=== PATIENT | female | born 1985 | race Caucasian/White ===

== ENCOUNTER 2016-08-10 12:59 | Inpatient (IN) | payer MEDICAID ==
--- NOTE | 2016-08-10 14:44 | US ---
Biophysical profile: Multiple real-time images were obtained transabdominally. Dates: LMP: ? Current ultrasound: [facility] 08/24/16, gestational age 38 weeks 0 days Earliest ultrasound (02/25/16): [facility] 08/20/16, gestational age 38 weeks 4 days presentation: Cephalic Placenta: Anterior Amniotic fluid: NICOLE 7.86 cm Measurements: BPD: 9.39 cm - 38 weeks 2 days Head circumference: 33.20 cm - 37 weeks 6 days Abdominal circumference: 33.82 cm - 37 weeks 5 days Femur length: 7.45 cm - 38 weeks 1 day Estimated weight: 3338 g (7 lbs. 6 oz.), estimated weight at the 57th percentile Heart rate: 127 bpm Cervical length: 4.3 cm Growth curves: Various growth parameters show growth around the mean percentile. Growth is appropriate from prior studies. Biophysical profile: movement 0, breathing movement 2, tone 0, amniotic fluid volume 2 Impression: 1. Single intrauterine fetus currently cephalic in presentation. Dates as noted above. 2. 4 out of 8 on biophysical profile. Diagnostic code #5 Technologist gave a preliminary report given to LELAND Tysno for Dr. Garrison Hurtado at 13:55 PM on day of exam
[2016-08-10] MEDS ORDERED: fentaNYL 100 MCG/2 ML SDV EPIDUR PRN (16:59)
[2016-08-10] MEDS ORDERED: ePHEDrine 50 MG/ML SDV IVPUSH PRN (16:59)
[2016-08-10] MEDS ORDERED: Ondansetron 4 MG/2 ML SDV IVPUSH PRN (16:59)
--- NOTE | 2016-08-10 17:05 | PCM.PREANE ---
Preanesthetic Assessment - Anesthesia/Transfusion/Family Hx Anesthesia History: Prior Anesthesia Without Reaction (No general anesthesia noted.) Family History of Anesthesia Reaction: No Transfusion History: No Prior Transfusion(s) Intubation History: Unknown - Review of Systems General: No Symptoms (Patient does c/o a sore throat in which she says she is a mouth breather.) Pulmonary: No Symptoms (Asthma- last used albuterol inhaler 3 months ago./ CARSON noted with patient having a CPAP machine, however pt. states she does not use the CPAP machine.) Cardiovascular: No Symptoms (chest tightness noted with anxiety attacks), Palpitations (with anxiety attacks.), Edema (noted with ), Lightheadedness (Only when blood sugars get low.) Gastrointestinal: No symptoms (GERD ) Neurological: No Symptoms Other: Reports: Diabetes (gestational DM noted with patient being treated with glyburide at night.), Throat Pain, Anxiety - Physical Assessment NPO Status Date: 08/10/16 NPO Status Time: 11:00 Pulse: 85 O2 Sat by Pulse Oximetry: 99 Respiratory Rate: 20 Blood Pressure: 144/78 Temperature: 37.4 C Height: 1.73 m Weight: 156.943 kg ASA Class: 2 Mental Status: Alert & Oriented x3 Airway Class: Mallampati = 2 Dentition: Reports: Normal Dentition, Caries Thyro-Mental Finger Breadths: 3 Mouth Opening Finger Breadths: 3 ROM/Head Extension: Full Lungs: Clear to auscultation, Normal respiratory effort Cardiovascular: Regular Rate, Regular Rhythm - Allergies Allergies/Adverse Reactions: Allergies Allergy/AdvReac Type Severity Reaction Status Date / Time No Known Allergies Allergy Verified 07/31/16 09:54 - Anesthesia Plan Pre-Op Medication Ordered: None - Acknowledgements Anesthesia Type Planned: Epidural Pt an Appropriate Candidate for the Planned Anesthesia: Yes Alternatives and Risks of Anesthesia Discussed w Pt/Guardian: Yes Pt/Guardian Understands and Agrees with Anesthesia Plan: Yes PreAnesthesia Questionnaire - HOME MEDS Home Medications: Home Meds Loperamide HCl [Ultra A-D] 2 mg PO 6XDAY PRN #1 tablet 07/31/16 [Rx] Vit W-Ca,Fe,FA(<1 mg) [ Vitamins] 1 each PO DAILY 07/31/16 [ History] glyBURIDE [Glyburide] 0.5 tab PO BEDTIME 07/31/16 [History] oxyCODONE HCl/Acetaminophen [Percocet 5-325 mg Tablet] 2 each PO QID PRN #20 tablet 07/31/16 [Rx] - CURRENT (IN HOUSE) MEDS Current Meds: Current Medications Ephedrine Sulfate (Ephedrine Sulfate) 5 mg IVPUSH ASDIRECTED PRN PRN Reason: Hypotension Fentanyl (Sublimaze) 100 mcg EPIDUR Q3H PRN PRN Reason: Pain Fentanyl/Bupivacaine HCl (Fentanyl/Bupivacaine/Ns 2 Mcg-0.125% 100 Ml) 100 ml EPIDUR ASDIRECTED KAUR Ondansetron HCl (Zofran) 4 mg IVPUSH ONETIME PRN PRN Reason: Nausea/Vomiting
[2016-08-10] MEDS ORDERED: Sodium Chloride 0.9% 10 ML Syringe FLUSH PRN (17:07)
[2016-08-10] MEDS ORDERED: Nalbuphine 20 MG/1 ML Amp IVPUSH PRN (17:07)
[2016-08-10] MEDS: Oxytocin/Lactated Ringers 10 UNIT/1,000 ML BAG IV SCH (17:50)
[2016-08-10] MEDS: Lactated Ringers 1,000 ML IV SCH (17:50)
--- NOTE | 2016-08-10 21:05 | PCM.LDHP ---
L&D History of Present Illness - General Date of Service: 08/10/16 Admit Problem/Dx: Patient Status Order with Admit Dx/Problem 08/10/16 17:07 Patient Status [ADT] Routine Admission Diagnosis/Problem Admission Diagnosis/Problem Normal labor 08/10/16 20:47 38-1/7 week intrauterine , nonreassuring biophysical profile and heart rate tracing. Source of Information: Patient History Limitations: Reports: No limitations - History of Present Illness Introduction:: Kriss is a 30-year-old 3 para 04/25/2002 white female who is admitted to labor and delivery for a medically indicated induction of labor. She is presently at 38-1/7 weeks gestational age as based upon her earliest ultrasound done on 01/12/2016 at 8-0/7 weeks gestational age with his her in [facility] of 2016. Patient was seen earlier today in clinic for a routine visit. She has a history of gestational diabetes, is on glyburide and has been having weekly biophysical profiles. Her biophysical profile score today was 4/8 with 0 for movement and 0 for amniotic fluid volume. A nonstress test was done in the clinic following the biophysical profile and showed a reactive strip however during the course of the monitoring she had a three-minute bradycardia to 60 beats per minute. This recovered however and patient was sent to labor and delivery for extended monitoring. With this patient is known to have some contractions approximately every 5 minutes which are causing her some cramping. heart tones are generally good. The decision is made to induce her today because of the testing, her street of gestational diabetes. The procedure of Pitocin induction, its risks, benefits and alternatives are discussed in detail with the patient. She is in agreement with the plan. 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 LMP is definite and started on 2015. Her cycles come monthly and patient was using no control at time conception. Menarche age 12. Positive hCG was on 12/22/2015. Patient has deliveries include a L. born [birth year]09/2006 at 37 weeks gestational age. He weighed 7 lbs. 7 oz. and was born in [facility]. She suffered from preeclampsia during that and delivered early because of this. Baby's name is Clyde. Second baby was born on 06/09/2011. Male infant born at 36 weeks gestational age after 32 hours of labor. 6 lbs. 6 oz. Normal spontaneous vaginal delivery in [facility]. Child's name is Son. Patient had gestational diabetes during that . Patient's course was significant for an abnormal quad screen with an increased alpha-fetoprotein. Patient was evaluated by maternal medicine in May 2016 and no spine defects were noted. She is group B strep negative. She declined influenza vaccination. She has gestational diabetes and is very well controlled with glyburide and diet modification. She is morbidly obese. Patient had RhoGAM on 06/01/2016. Weekly biophysical profiles have been reassuring until today. Patient's first visit was on 01/12/2016 at 8-5/ 7 weeks gestational age. She was seen on a very regular basis. She made good fundal height growth bolus was very hard to evaluate. Weight increased from 322 pounds to 346 pounds. Her blood pressure remained stable throughout the course. Laboratory testing and shows blood to the A-. Antibody screen is negative. Platelets at first visit were 295,000. Pap smear was normal. Rubella titer showed immunity. RPR is nonreactive. Hepatitis B and HIV assays were negative. Gonorrhea and 6 Chlamydia assays were negative. Second trimester testing showed a hemoglobin of 10.4 which time patient was started on iron therapy. Platelets were 275. One-hour GTT was 137. Three-hour GTT showed fasting blood sugar of 97. One hour GTT was 213, 2 are both blood glucose was 172, three-hour glucose was 78. Group B strep screen was negative. RhoGAM was given on 05/31/2016 following a negative antibody screen. Allergies: none Medications: 1. Glyburide 2.5 mg daily 2. Sertraline 50 mg by mouth daily 3. Xanax 0.5 mg taken on occasion early in the . 4. ProAir inhalation aerosol solution 1-2 puffs every 4-6 hours when necessary for asthma 5. vitamins Past medical history: 1. history of preeclampsia first 2. History of gestational diabetes and second 3 History of depression and anxiety. Past surgical history: 1. Left arm surgery in 1992 2. 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 Maternal and paternal grandmothers with lung cancer. No anesthesia, bleeding or blood clotting problems noted in the family. Social history: Patient is single. She works at [employer]. She lives in [facility]. She does use a significant loss of alcohol drugs tobacco. Review of systems: Skin-negative Cardiovascular-negative Respiratory-unremarkable Breasts-changes associated with Abdomen/GI-no concerns gas changes associated with Musculoskeletal-unremarkable Neurological-negative Physical exam: Pre-gravid weight 322 pounds, weight today 346 pounds, blood pressure today 130/78, heart rate 130 beats per minute In general this is a well-developed well-nourished massively obese white female in no acute distress. She is alert and oriented x3 and appears his stated age. Skin is warm and dry without lesions. Patient does have some well healed lesions consistent with old and healed carbuncle was on her abdomen. No active lesions noted HEENT, neck and back within normal limits Lungs are clear with good breath sounds in all lung morin. Cardiovascular exam shows regular rate and rhythm. Breasts exam deferred having been done at first visit on HEENT normal. Abdomen is obese, soft, nontender the uterus is at 40 cm fundal height consistent with dates Cervical evaluation done upon admission shows cervix to be a tight 3 cm, 80% effaced, very soft, -4 station, mid position, vertex presentation, bag of thomas intact. Extremities and neurological exam mild edema within normal limits. 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 History: Reports: Psychiatric History: Reports: Anxiety, Depression Endocrine/Metabolic History: Reports: Diabetes, gestational - Past Surgical History Respiratory Surgical History: Reports: None Other Musculoskeletal Surgeries/Procedures:: left hand surgery Social & Family History - Family History Family Medical History: Noncontributory - Tobacco Use Smoking Status *Q: Never Smoker Second Hand Smoke Exposure: No - Recreational Drug Use Recreational Drug Use: No H&P Review of Systems - Review of Systems: Review Of Systems: See Below L&D Exam - Exam Exam: See Below - Vital Signs Vital Signs: Last Vital Signs Temp 37.4 C 08/10/16 17:31 Pulse 85 08/10/16 17:31 Resp 20 08/10/16 17:31 BP 144/78 H 08/10/16 17:31 Pulse Ox 99 08/10/16 17:31 Weight: 156.943 kg - Patient Data Lab Results last 24 hrs: Laboratory Results - last 24 hr 08/10/16 Range/Units 17:35 WBC 12.26 H (3.98-10.04) K/mm3 RBC 3.98 (3.98-5.22) M/mm3 Hgb 11.1 L (11.2-15.7) gm/L Hct 33.7 L (34.1-44.9) % MCV 84.7 (79.4-94.8) fl MCH 27.9 (25.6-32.2) pg MCHC 32.9 (32.2-35.5) g/dl RDW Std Deviation 50.1 H (36.4-46.3) fL Plt Count 245 (182-369) K/mm3 MPV 9.0 L (9.4-12.3) fl Neut % (Auto) 75.0 H (34.0-71.1) % Lymph % (Auto) 16.2 L (19.3-51.7) % [place] % (Auto) 6.9 (4.7-12.5) % Eos % (Auto) 1.5 (0.7-5.8) Baso % (Auto) 0.2 (0.1-1.2) % Neut # (Auto) 9.20 H (1.56-6.13) K/mm3 Lymph # (Auto) 1.98 (1.18-3.74) K/mm3 Paul[place] # (Auto) 0.85 H (0.24-0.36) K/mm3 Eos # (Auto) 0.19 (0.04-0.36) K/mm3 Baso # (Auto) 0.02 (0.01-0.08) K/mm3 Result Diagrams: 08/10/16 17:35 Problem List Initiated/Reviewed/Updated: Yes Orders Last 24hrs: Active Orders 24 hr Category Date Time Status Patient Status [ADT] Routine ADT 08/10/16 17:07 Active Activity as Tolerated [RC] PFP Care 08/10/16 17:07 Active Communication Order [RC] ASDIRECTED Care 08/10/16 17:07 Active Heart Tones [RC] ASDIRECTED Care 08/10/16 17:09 Active Notify Provider [RC] ASDIRECTED Care 08/10/16 16:59 Active Notify Provider [RC] PFP Care 08/10/16 17:07 Active Notify Provider [RC] PRN Care 08/10/16 17:07 Active Oxygen Therapy [RC] ASDIRECTED Care 08/10/16 16:59 Active Peripheral IV Care [RC] . DIRECTED Care 08/10/16 17:09 Active Pulse Oximetry [RC] ASDIRECTED Care 08/10/16 16:59 Active Vital Signs [RC] PER UNIT ROUTINE Care 08/10/16 17:07 Active Clear Liquid Diet [DIET] Diet 08/10/16 Dinner Active Bupivacaine/fentaNYL/NS [fentaNYL/Bupivacaine/NS 2 MCG- Med 08/10/16 17:00 Active 0.125% 100 ML] 100 ml EPIDUR ASDIRECTED Lactated Ringers [Ringers, Lactated] 1,000 ml Med 08/10/16 17:15 Active IV ASDIRECTED Nalbuphine [Nubain] Med 08/10/16 17:07 Active 10 mg IVPUSH Q2H PRN Ondansetron [Zofran] Med 08/10/16 16:59 Active 4 mg IVPUSH ONETIME PRN Oxytocin/Lactated Ringers [Pitocin in LR 10 Units/1,000 Med 08/10/16 17:30 Active ML] 10 unit in 1,000 ml IV TITRATE Sodium Chloride 0.9% [Saline Flush] Med 08/10/16 17:07 Active 10 ml FLUSH ASDIRECTED PRN ePHEDrine [ePHEDrine Sulfate] Med 08/10/16 16:59 Active 5 mg IVPUSH ASDIRECTED PRN fentaNYL [Sublimaze] Med 08/10/16 16:59 Active 100 mcg EPIDUR Q3H PRN Electronic Heart Tones Ext w TOCO [WOMSER] Oth 08/10/16 17:07 Ordered Routine Electronic Heart Tones Internal [WOMSER] Per Unit Oth 08/10/16 17:07 Ordered Routine Peripheral IV Insertion Adult [OM.PC] Routine Oth 08/10/16 17:07 Ordered Resuscitation Status Routine Resus Stat 08/10/16 17:07 Ordered Medication Orders Ephedrine Sulfate (Ephedrine Sulfate) 5 mg IVPUSH ASDIRECTED PRN PRN Reason: Hypotension Fentanyl (Sublimaze) 100 mcg EPIDUR Q3H PRN PRN Reason: Pain Fentanyl/Bupivacaine HCl (Fentanyl/Bupivacaine/Ns 2 Mcg-0.125% 100 Ml) 100 ml EPIDUR ASDIRECTED KAUR Lactated Ringer's (Ringers, Lactated) 1,000 mls @ 100 mls/hr IV ASDIRECTED KAUR Last Admin: 08/10/16 17:50 Dose: 100 mls/hr Oxytocin/Lactated Ringer's (Pitocin In Lr 10 Units/1,000 Ml) 10 unit in 1,000 mls @ 12 mls/hr IV TITRATE KAUR; 2 MUNITS/MIN PRN Reason: Protocol Last Titration: 08/10/16 18:59 Dose: 6 munits/min, 36 mls/hr Titration: 08/10/16 18:10 Dose: 4 munits/min, 24 mls/hr Admin: 08/10/16 17:50 Dose: 2 munits/min, 12 mls/hr Nalbuphine HCl (Nubain) 10 mg IVPUSH Q2H PRN PRN Reason: Pain (moderate 4-6) Ondansetron HCl (Zofran) 4 mg IVPUSH ONETIME PRN PRN Reason: Nausea/Vomiting Sodium Chloride (Saline Flush) 10 ml FLUSH ASDIRECTED PRN PRN Reason: Keep Vein Open Assessment/Plan Comment:: Assessment: 1. 38-1/7 week intrauterine with a nonreassuring biophysical profile and a nonreassuring heart rate strip with a 3 minute deceleration of heart rate to the rate of 60 beats per minute. 2. History gestational diabetes well controlled with diet and with glyburide therapy. 3. Group B strep screen negative 4. A- blood-RhoGAM given 06/01/2016 5. Morbid obesity, history of previous preeclampsia, history of previous very long labor of 32 hours, history of gestational diabetes with her pregnancies : 1. Medically indicated induction of labor for nonreassuring heart tones. 2. CBC to be obtained 3. Patient is okay with epidural will elect to try going natural if possible 4. Intermittent monitoring is okay. The evaluation is difficult because of patient's body habitus.
[2016-08-11] MEDS: Lactated Ringers 1,000 ML IV SCH ×3 (04:57→10:17)
[2016-08-11] MEDS: Bupivacaine/fentaNYL/NS 100 ML Bag EPIDUR SCH ×2 (07:55→12:38)
[2016-08-11] MEDS: Oxytocin/Lactated Ringers 10 UNIT/1,000 ML BAG IV SCH (08:08)
[2016-08-11] MEDS ORDERED: Bupivacaine 0.25% 10 ML SDV ONE (19:35)
[2016-08-11] MEDS ORDERED: Acetaminophen 325 MG Tab PO PRN (19:35)
[2016-08-11] MEDS ORDERED: Lanolin 100% Cream 7 GM Tube TOP PRN (19:35)
[2016-08-11] MEDS ORDERED: Benzocaine/Menthol 20%-0.5% Spray 56 GM Canister TOP PRN (19:35)
[2016-08-11] MEDS ORDERED: Witch Hazel Medicated Pads 100/Jar TOP PRN (19:35)
[2016-08-11] MEDS ORDERED: Docusate Sodium 100 MG Cap PO PRN (19:35)
[2016-08-11] MEDS: Ibuprofen 600 MG Tab PO PRN (21:05)
[2016-08-12] MEDS: Ibuprofen 600 MG Tab PO PRN ×2 (06:36→20:43)
[2016-08-12] MEDS: Prenatal Multivitamin with Calcium/Folic Acid/Iron Tab PO SCH (10:48)
--- NOTE | 2016-08-13 05:51 | PCM.SN ---
- Free Text/Narrative Note: Kriss is a 29 viral 3 para 3003 white female who delivered 3 days ago. She seen late last evening on rounds and found to be doing well. She is nursing without problems, has minimal lochia voiding well. She is ambulating without concerns. Her vital signs stable patient is afebrile. Abdomen is obese, soft, hard to evaluate uterus feels firm and just below the umbilicus. Legs are nontender with only minimal edema. Assessment/plan: Evaluation day 1 patient doing well. Patient-like be discharged on day 2. Her baby initially had some glucose level problems and was placed on IV but this is been discontinued and baby will be ready to go home when patient is.
--- NOTE | 2016-08-13 05:57 | PCM.DCSUM1 ---
Discharge Summary - Hospital Course Free Text/Narrative:: Induced 30-year-old 3 now para 3003 white female was admitted to the hospital 2 days ago after less than reassuring biophysical profile and nonstress test were performed. These were done a regular basis because of her history of gestational diabetes on medications. She received a biophysical profile score of 4/8 and, although a nonstress test was reactive, patien experienced a three-minute bradycardia to the 60 beat per minute level. Decision is made to induce labor at that time she is only 38+ weeks. Patient underwent induction of labor and has done well. She delivered a viable jenkins male was done well. Patient's followup has been unremarkable. she has done well. Vital signs stable. She is afebrile. Followup CBC is within normal limits. Patient is desiring to go home. - Discharge Data Discharge Date: 08/13/16 Discharge Disposition: Home, Self-Care 01 Condition: Good - Patient Instructions Diet: Regular Diet as Tolerated (Nursing diet was increased calories and calcium as directed) Activity: As Tolerated (No intercourse or tampons until bleeding resolves) Driving: May Drive Today Showering/Bathing: May Shower (May take a bath) Notify Provider of: Fever, Increased Pain, Swelling and Redness, Nausea and/or Vomiting - Discharge Plan Home Medications: Home Meds Vit W-Ca,Fe,FA(<1 mg) [ Vitamins] 1 each PO DAILY 07/31/16 [ History] glyBURIDE [Glyburide] 0.5 tab PO BEDTIME 07/31/16 [History] Ibuprofen [IJD: Ibuprofen] 600 mg PO Q4H PRN #30 tablet 08/13/16 [Rx] Referrals: Garrison Hurtado MD [Physician] - - Discharge Summary/Plan Comment DC Time >30 min.: No Discharge Summary/Plan Comment: Discharge instructions: 1. Discharge home 2. Regular, diabetic diet. 3. Precautions given concern increased pain, bleeding, temperature, sign/ symptoms of DVT. Patient also call blood sugars are running excessively high. 4. Patient blood sugars 4 times a day before meals and at bedtime. 5. Medications per home medication list printed, discussed was given to the patient. 6. In clinic-Dr. Hurtado-2 weeks-[facility]. Diagnosis: 1 38-plus week intrauterine , gestational diabetes-on meds, nonreassuring testing-delivered 2. Gestational diabetes-on meds Condition: Good - Patient Data Vitals - Most Recent: Last Vital Signs Temp 36.6 C 08/13/16 03:46 Pulse 84 08/13/16 03:46 Resp 16 08/13/16 03:46 BP 124/56 L 08/13/16 03:46 Pulse Ox 97 08/13/16 03:46 Weight - Most Recent: 156.943 kg I&O - Last 24 hours: Intake & Output 08/12/16 08/12/16 08/13/16 14:59 22:59 06:59 Intake Total 240 Balance 240 Lab Results - Last 24 hrs: Laboratory Results - last 24 hr 08/12/16 Range/Units 06:40 WBC 12.13 H (3.98-10.04) K/mm3 RBC 3.60 L (3.98-5.22) M/mm3 Hgb 10.3 L (11.2-15.7) gm/L Hct 31.0 L (34.1-44.9) % MCV 86.1 (79.4-94.8) fl MCH 28.6 (25.6-32.2) pg MCHC 33.2 (32.2-35.5) g/dl RDW Std Deviation 51.4 H (36.4-46.3) fL Plt Count 214 (182-369) K/mm3 MPV 9.3 L (9.4-12.3) fl Med Orders - Current: Current Medications Acetaminophen (Tylenol) 650 mg PO Q4H PRN PRN Reason: mild pain or fever Benzocaine/Menthol (Dermoplast Pain Relief Eagle) 0 gm TOP ASDIRECTED PRN PRN Reason: Perineal Comfort Measure Docusate Sodium (Colace) 100 mg PO BID PRN PRN Reason: Constipation Last Admin: 08/11/16 21:05 Dose: 100 mg Emollient Ointment (Lansinoh Hpa) 0 gm TOP ASDIRECTED PRN PRN Reason: Sore Nipples Ibuprofen (Motrin) 600 mg PO Q4H PRN PRN Reason: Mild pain or fever Last Admin: 08/12/16 20:43 Dose: 600 mg Prenat Multivit/Director Asset/Iron/Folic Ac ( Plus Iron) 1 each PO DAILY [facility] Last Admin: 08/12/16 10:48 Dose: 1 each Jesus Welch (Tucks) 1 pad TOP ASDIRECTED PRN PRN Reason: Hemorrhoid pain Discontinued Medications Ephedrine Sulfate (Ephedrine Sulfate) 5 mg IVPUSH ASDIRECTED PRN PRN Reason: Hypotension Fentanyl (Sublimaze) 100 mcg EPIDUR Q3H PRN PRN Reason: Pain Last Admin: 08/11/16 07:55 Dose: 100 mcg Fentanyl/Bupivacaine HCl (Fentanyl/Bupivacaine/Ns 2 Mcg-0.125% 100 Ml) 100 ml EPIDUR ASDIRECTED KAUR Last Admin: 08/11/16 12:38 Dose: 100 ml Lactated Ringer's (Ringers, Lactated) 1,000 mls @ 100 mls/hr IV ASDIRECTED KAUR Last Admin: 08/11/16 10:17 Dose: 100 mls/hr Oxytocin/Lactated Ringer's (Pitocin In Lr 10 Units/1,000 Ml) 10 unit in 1,000 mls @ 12 mls/hr IV TITRATE KAUR; 2 MUNITS/MIN PRN Reason: Protocol Last Titration: 08/11/16 08:36 Dose: 5 munits/min, 30 mls/hr Nalbuphine HCl (Nubain) 10 mg IVPUSH Q2H PRN PRN Reason: Pain (moderate 4-6) Ondansetron HCl (Zofran) 4 mg IVPUSH ONETIME PRN PRN Reason: Nausea/Vomiting Sodium Chloride (Saline Flush) 10 ml FLUSH ASDIRECTED PRN PRN Reason: Keep Vein Open *Q Meaningful Use (DIS) - VTE *Q VTE Criteria *Q: - Stroke *Q Stroke Criteria *Q: - AMI *Q AMI Criteria *Q:
[2016-08-13] MEDS: Prenatal Multivitamin with Calcium/Folic Acid/Iron Tab PO SCH (09:53)
[2016-08-13 15:05] VITALS: BP 140/77
--- NOTE | 2016-08-18 06:24 | PCM.SN ---
- Free Text/Narrative Note: Delivery note: Kriss is a 30-year-old 3 para 04/25/2002 white female who is admitted to labor and delivery for a medically indicated induction of labor. She is presently at 38-1/7 weeks gestational age as based upon her earliest ultrasound done on 01/12/2016 at 8-0/7 weeks gestational age with his her in [facility] of 2016. Patient was seen earlier today in clinic for a routine visit. At that time she was noted to have a persistent heart rate deceleration on NST down to 60 beats a minute for approximately 3 minutes. She had a biophysical profile score which was 4/8. Because this patient is brought to labor and delivery. Decision was made to proceed with induction. Induction was undertaken with Pitocin and eventually artificial rupture membranes. She progressed well and at 1416 hours on 08/11/2016 delivered a 38-2/ 7 week jenkins intrauterine . Any infant weighing 3310 g (7 pounds 4.8 ounces), and Apgars of 8 and 9. Patient had had an epidural in place. Baby is 20 inches in length. The placenta delivered spontaneously initials fashion. It had 3 vessels. It appeared intact. Pitocin was administered IV after delivery of the baby. Estimated blood loss was average. Condition: Good. The patient plans to nurse.
== END 2016-08-13 13:00 | disposition home or self-care (01) | DRG 775 ==
LOC: JD.OBCHECK 12:59 → JD.US 12:59 → JD.OB 15:13 → JD.OBCHECK 17:07 → JD.OB 08-11 07:52 → OBSVTOIN 08-11 14:16 → JD.OB 08-11 14:16
PROVIDERS: ADMIT Obstetrics & Gynecology; ATTEND Obstetrics & Gynecology
PROC: 10E0XZZ Delivery of Products of Conception, External Approach (ICD-10-PCS; principal; 2016-08-11)
PROC: 10907ZC Drainage of Amniotic Fluid, Therapeutic from Products of Conception, Via Natural or Artificial Opening (ICD-10-PCS; 2016-08-11)
PROC: 00HU33Z Insertion of Infusion Device into Spinal Canal, Percutaneous Approach (ICD-10-PCS; 2016-08-11)
PROC: 3E0R3CZ (ICD-10-PCS; 2016-08-11)
DX: O76 Abnormality in fetal heart rate and rhythm complicating labor and delivery (principal); O28.3 Abnormal ultrasonic finding on antenatal screening of mother; O24.425 Gestational diabetes mellitus in childbirth, controlled by oral hypoglycemic drugs; Z3A.38 38 weeks gestation of pregnancy; Z37.0 Single live birth; O99.344 Other mental disorders complicating childbirth; F41.9 Anxiety disorder, unspecified; F32.9 Major depressive disorder, single episode, unspecified
CPT/HCPCS: 36415; 76816; 76819; 76819-26; 85025; 85027; 85461; 86850; 86900; 86901; A9270-GY; J2590; J2790; J3010; J7120

== ENCOUNTER 2017-05-20 17:24 | Emergency (ER) | payer MEDICAID ==
[2017-05-20] MEDS ORDERED: Sodium Chloride 0.9% 10 ML Syringe FLUSH PRN (17:58)
[2017-05-20] MEDS ORDERED: Sodium Chloride 0.9% 1,000 ML IV ONE (17:58)
[2017-05-20] MEDS ORDERED: Acetaminophen 325 MG Tab PO ONE (19:20)
--- NOTE | 2017-05-20 19:42 | US ---
First trimester obstetrical ultrasound: Multiple real-time images were obtained transvaginally. Comparison: No previous exam for current . Technologist's note: Difficult exam due to body habitus Findings: No gestational sac is seen. There is hypoechoic area within the endometrial canal most likely due to blood clot. Incidental nabothian cysts are present. Right and left ovaries appear unremarkable. Measurements: Right ovary: 3.4 x 1.6 x 2.1 cm Left ovary: 2.8 x 2.0 x 1.8 cm Impression: 1. No intrauterine gestational sac. Hypoechoic material is seen within the endometrial cavity presumably due to blood. 2. Incidental nabothian cysts. 3. No additional abnormality is seen. Diagnostic code #2
--- NOTE | 2017-05-20 20:57 | EDM.PDOC ---
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 Patient reports that the vaginal bleeding started about 0700 this morning. States that she has been changing a pad or tampon every hour. States that when she got up she felt like she "peed her pants " due to the bleeding. Reports she is passing clots. Patient reports some back pain and vaginal bleeding. Denies any lightheadedness, dizziness or syncope. No urinary symptoms. No nausea or vomiting. She presented the walking clinic today and was found to be with a positive urine test. Patient was unaware of this. She reports her last menstrual period ended about a week ago. It did last 2 weeks and was heavier than normal. She states she has a 9-month-old baby at home. She's had a menstrual cycle monthly since having this child. She is a . Blood type is A-. Pelvic Pain Score (Numeric/FACES): 3 - Related Data Allergies Allergy/AdvReac Type Severity Reaction Status Date / Time No Known Allergies Allergy Verified 07/31/16 09:54 Home Meds: Home Meds . 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 History: pt has had 3 vaginal deliveries; has never had a misccariage Psychiatric History: Reports: Anxiety, Depression Endocrine/Metabolic History: Reports: Diabetes, Gestational - Past Surgical History Respiratory Surgical History: Reports: None Other Musculoskeletal Surgeries/Procedures:: left hand surgery Social & Family History - Family History Family Medical History: Noncontributory - Tobacco Use Smoking Status *Q: Never Smoker Second Hand Smoke Exposure: No - Caffeine Use Caffeine Use: Reports: Coffee - Recreational Drug Use Recreational Drug Use: No ED ROS GENERAL - Review of Systems Review Of Systems: See Below Cardiovascular: Denies: Lightheadedness GI/Abdominal: Denies: Abdominal Pain, Nausea, Vomiting : Reports: Other (vaginal bleeding). Denies: Dysuria (va) Musculoskeletal: Reports: Back Pain Neurological: Denies: Dizziness, Syncope ED EXAM - Physical Exam Exam: See Below Exam Limited By: No Limitations General Appearance: Alert, WD/WN, No Apparent Distress, Anxious, Obese Eye Exam: Bilateral Eye: Normal Inspection Ears: Normal External Exam Nose: Normal Inspection Throat/Mouth: Normal Inspection, Normal Voice, No Airway Compromise Respiratory/Chest: No Respiratory Distress, Lungs Clear, Normal Breath Sounds Cardiovascular: Normal Peripheral Pulses, Regular Rate, Rhythm, No Murmur GI/Abdominal Exam: Normal Bowel Sounds, Soft, Non-Tender (Female) Exam: Vaginal Bleeding. No: Cervical Dilatation, Products of Conception Neurological: Alert, Oriented, Normal Cognition Psychiatric: Normal Affect, Normal Mood Skin Exam: Warm, Dry, Normal Color Course - Vital Signs Last Recorded V/S: Last Vital Signs Temp 37.4 C 05/20/17 17:39 Pulse 80 05/20/17 21:15 Resp 16 05/20/17 21:15 BP 125/74 05/20/17 21:15 Pulse Ox 98 05/20/17 21:15 Orthostatic Blood Pressure [ 159/90 Standing] Orthostatic Blood Pressure [ 150/85 Sitting] Orthostatic Blood Pressure [ 161/78 Supine] - Orders/Labs/Meds Labs: Laboratory Tests 05/20/17 05/20/17 05/20/17 Range/Units 18:18 18:18 18:18 WBC 11.60 H (3.98-10.04) K/mm3 RBC 4.36 (3.98-5.22) M/mm3 Hgb 11.3 (11.2-15.7) gm/L Hct 35.4 (34.1-44.9) % MCV 81.2 (79.4-94.8) fl MCH 25.9 (25.6-32.2) pg MCHC 31.9 L (32.2-35.5) g/dl RDW Std Deviation 46.8 H (36.4-46.3) fL Plt Count 280 (182-369) K/mm3 MPV 8.9 L (9.4-12.3) fl Neut % (Auto) 70.1 (34.0-71.1) % Lymph % (Auto) 19.7 (19.3-51.7) % Prowers % (Auto) 7.8 (4.7-12.5) % Eos % (Auto) 1.9 (0.7-5.8) Baso % (Auto) 0.2 (0.1-1.2) % Neut # (Auto) 8.14 H (1.56-6.13) K/mm3 Lymph # (Auto) 2.28 (1.18-3.74) K/mm3 Prowers # (Auto) 0.91 H (0.24-0.36) K/mm3 Eos # (Auto) 0.22 (0.04-0.36) K/mm3 Baso # (Auto) 0.02 (0.01-0.08) K/mm3 Sodium 140 (136-145) mEq/L Potassium 4.0 (3.5-5.1) mEq/L Chloride 107 (98-107) mEq/L Carbon Dioxide 25 (21-32) mEq/L Anion Gap 12.0 (5-15) BUN 16 (7-18) mg/dL Creatinine 0.8 (0.55-1.02) mg/dL Est Cr Clr Drug Dosing 105.51 mL/min Estimated GFR (MDRD) > 60 (>60) mL/min BUN/Creatinine Ratio 20.0 H (14-18) Glucose 90 (74-106) mg/dL Calcium 9.4 (8.5-10.1) mg/dL Total Bilirubin 0.2 (0.2-1.0) mg/dL AST 13 L (15-37) U/L ALT 18 (14-59) U/L Alkaline Phosphatase 69 (46-116) U/L Total Protein 7.4 (6.4-8.2) g/dl Albumin 3.8 (3.4-5.0) g/dl Globulin 3.6 gm/dL Albumin/Globulin Ratio 1.1 (1-2) HCG, Quant 4059.0 mIU/mL Urine Color (Yellow) Urine Appearance (Clear) Urine pH (5.0-8.0) Ur Specific Marshall (1.005-1.030) Urine Protein (Negative) Urine Glucose (UA) (Negative) Urine Ketones (Negative) Urine Occult Blood (Negative) Urine Nitrite (Negative) Urine Bilirubin (Negative) Urine Urobilinogen (0.2-1.0) Ur Leukocyte Esterase (Negative) Urine RBC (0-5) /hpf Urine WBC (0-5) /hpf Ur Epithelial Cells (0-5) /hpf Urine Bacteria (FEW) /hpf Urine Mucus (FEW) /hpf Blood Type Gel Antibody Screen Rhogam Indicated 05/20/17 05/20/17 Range/Units 18:18 20:20 WBC (3.98-10.04) K/mm3 RBC (3.98-5.22) M/mm3 Hgb (11.2-15.7) gm/L Hct (34.1-44.9) % MCV (79.4-94.8) fl MCH (25.6-32.2) pg MCHC (32.2-35.5) g/dl RDW Std Deviation (36.4-46.3) fL Plt Count (182-369) K/mm3 MPV (9.4-12.3) fl Neut % (Auto) (34.0-71.1) % Lymph % (Auto) (19.3-51.7) % Prowers % (Auto) (4.7-12.5) % Eos % (Auto) (0.7-5.8) Baso % (Auto) (0.1-1.2) % Neut # (Auto) (1.56-6.13) K/mm3 Lymph # (Auto) (1.18-3.74) K/mm3 Prowers # (Auto) (0.24-0.36) K/mm3 Eos # (Auto) (0.04-0.36) K/mm3 Baso # (Auto) (0.01-0.08) K/mm3 Sodium (136-145) mEq/L Potassium (3.5-5.1) mEq/L Chloride (98-107) mEq/L Carbon Dioxide (21-32) mEq/L Anion Gap (5-15) BUN (7-18) mg/dL Creatinine (0.55-1.02) mg/dL Est Cr Clr Drug Dosing mL/min Estimated GFR (MDRD) (>60) mL/min BUN/Creatinine Ratio (14-18) Glucose (74-106) mg/dL Calcium (8.5-10.1) mg/dL Total Bilirubin (0.2-1.0) mg/dL AST (15-37) U/L ALT (14-59) U/L Alkaline Phosphatase (46-116) U/L Total Protein (6.4-8.2) g/dl Albumin (3.4-5.0) g/dl Globulin gm/dL Albumin/Globulin Ratio (1-2) HCG, Quant mIU/mL Urine Color Red H (Yellow) Urine Appearance Cloudy H (Clear) Urine pH 6.0 (5.0-8.0) Ur Specific Marshall > or = 1.030 (1.005-1.030) Urine Protein 2+ H (Negative) Urine Glucose (UA) Negative (Negative) Urine Ketones Negative (Negative) Urine Occult Blood 3+ H (Negative) Urine Nitrite Negative (Negative) Urine Bilirubin Negative (Negative) Urine Urobilinogen 1.0 (0.2-1.0) Ur Leukocyte Esterase Negative (Negative) Urine RBC >100 H (0-5) /hpf Urine WBC 0-5 (0-5) /hpf Ur Epithelial Cells 0-5 (0-5) /hpf Urine Bacteria Few (FEW) /hpf Urine Mucus Not seen (FEW) /hpf Blood Type A NEGATIVE Gel Antibody Screen Negative Rhogam Indicated Yes Meds: Medications Discontinued Medications Generic Name Dose Route Start Last Admin Trade Name Freq PRN Reason Stop Dose Admin Acetaminophen 975 mg 05/20/17 19:20 05/20/17 19:27 Tylenol PO 05/20/17 19:21 975 mg NOW ONE Administration Sodium Chloride 1,000 mls @ 999 mls/hr 05/20/17 17:58 05/20/17 19:12 Normal Saline IV 05/20/17 18:58 999 mls/hr ONETIME ONE Administration Sodium Chloride 10 ml 05/20/17 17:58 05/20/17 19:14 Saline Flush FLUSH 10 ml ASDIRECTED PRN Administration Keep Vein Open - Radiology Interpretation Free Text/Narrative:: transvaginal ultrasound impression per Dr. Brown: No intrauterine gestational sac. Hypoechoic material is seen within the endometrial cavity presumably due to blood. Incidental nabothian cysts. - Re-Assessments/Exams Free Text/Narrative Re-Assessment/Exam: 05/20/17 20:57 I discussed the results with the patient. Discussed watching wait approach, versus taking medications versus a D&C. Patient will like to adopt a wait and see approach. I discussed the case with Dr. Bone. She is agreeable today [id number] approach. She would like to see her in clinic on Tuesday with plans for repeat Quant. Discharge instructions as documented. rhogram has been given. Departure - Departure Time of Disposition: 20:57 Disposition: Home, Self-Care 01 Condition: Fair Clinical Impression: Miscarriage - Discharge Information Instructions: Miscarriage, [id number] Referrals: Garrison Hurtado MD [Primary Care Provider] - Pilar Bone MD [Physician] - Forms: ED Department Discharge, ED Return to Work/School Form Additional Instructions: Make sure you are drinking plenty of fluids. Recommend starting iron supplementation. Follow up with Dr. Bone on Tuesday. You'll need a HCG redrawn. Call [phone] to schedule with her. Expect cramping and bleeding. may take [id number] Tylenol or Motrin as needed for this. Note given for work. Please return to the ER immediately if your symptoms change or worsen. In particular if you were having syncopal episodes, severe hemorrhaging or any other concerning symptom we would like to see you back immediately.
[2017-05-20 21:16] VITALS: BP 125/74
== END 2017-05-20 21:05 | disposition home or self-care (01) ==
LOC: JD.ED 17:24 → SUPCPDRO 17:24 → JD.ED 21:05
DX: O03.9 Complete or unspecified spontaneous abortion without complication (principal)
CPT/HCPCS: 36415; 76817; 80053; 81001; 84702; 85025; 86850; 86900; 86901; 96360; 96372; 99284; A9270; J2790; J7040; J7050

== ENCOUNTER 2017-07-10 13:18 | Emergency (ER) | payer MEDICAID ==
[2017-07-10 13:38] VITALS: BP 130/67
--- NOTE | 2017-07-10 14:09 | EDM.PDOC ---
ED HPI GENERAL MEDICAL PROBLEM - General Chief Complaint: Upper Extremity Injury/Pain Stated Complaint: RIGHT HAND INJURY Time Seen by Provider: 07/10/17 13:35 Source of Information: Reports: Patient History Limitations: Reports: No Limitations - History of Present Illness INITIAL COMMENTS - FREE TEXT/NARRATIVE: Patient is a 31-year-old female who presents to the ED complaining of right fifth finger and hand pain. Patient states with walking up a set of stairs she slipped and fell on her hand injuring the affected areas. She has a history of prior fracture to the affected hand a few years ago. This did not require surgery. Pain is isolated to the right fifth finger and fifth metacarpal. No pain to the right wrist, forearm, elbow, upper arm, shoulder, or clavicle. This happened today just prior to arrival. She offers no additional complaints. Right 5-Little finger Pain Score (Numeric/FACES): 7 - Related Data Allergies Allergy/AdvReac Type Severity Reaction Status Date / Time No Known Allergies Allergy Verified 07/31/16 09:54 Home Meds: Home Meds . 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 History: pt has had 3 vaginal deliveries; has never had a misccariage Psychiatric History: Reports: Anxiety, Depression Endocrine/Metabolic History: Reports: Diabetes, Gestational - Past Surgical History Respiratory Surgical History: Reports: None Other Musculoskeletal Surgeries/Procedures:: left hand surgery Social & Family History - Family History Family Medical History: Noncontributory - Tobacco Use Smoking Status *Q: Never Smoker Second Hand Smoke Exposure: No - Caffeine Use Caffeine Use: Reports: Coffee - Recreational Drug Use Recreational Drug Use: No Review of Systems - Review of Systems Review Of Systems: ROS reveals no pertinent complaints other than HPI. ED EXAM, GENERAL - Physical Exam Exam: See Below Exam Limited By: No Limitations General Appearance: Alert, WD/WN, No Apparent Distress Ears: Hearing Grossly Normal Nose: Normal Inspection Throat/Mouth: Normal Voice, No Airway Compromise Neck: Normal Inspection, Supple Respiratory/Chest: No Respiratory Distress, No Accessory Muscle Use Cardiovascular: Normal Peripheral Pulses, Regular Rate, Rhythm Peripheral Pulses: 4+: Radial (R) Extremities: Normal Inspection, Other (Right hand: Pain along the right fifth finger and fifth metacarpal with palpation. Decreased range of motion noted. No bony abnormalities. Minimal swelling if any. No pain along the snuffbox, remainder presents to the wrist, forearm, elbow, upper arm, shoulder, clavicle.) Neurological: Alert, Oriented, CN II-XII Intact, Normal Cognition, No Motor/ Sensory Deficits Psychiatric: Normal Affect, Normal Mood Skin Exam: Warm, Dry, Intact, Normal Color, No Rash Course - Vital Signs Last Recorded V/S: Last Vital Signs Temp 97.3 F 07/10/17 13:36 Pulse 85 07/10/17 13:36 Resp 20 07/10/17 13:36 BP 130/67 07/10/17 13:36 Pulse Ox 100 07/10/17 13:36 - Re-Assessments/Exams Free Text/Narrative Re-Assessment/Exam: Will obtain x-ray of the right finger and hand. 07/10/17 14:21 x-ray of the right finger and fifth metacarpal did not reveal any acute bony abnormalities. Final interpretation is pending. Will place the finger in a aluminum finger splint for comfort for the next few days. Discharge instructions as documented. Departure - Departure Time of Disposition: 14:21 Disposition: Home, Self-Care 01 Condition: Good Clinical Impression: Finger contusion Qualifiers: Encounter type: initial encounter Finger: little finger Damage to nail status: without damage Laterality: right Qualified Code(s): S60.051A - Contusion of right little finger without damage to nail, initial encounter Contusion of hand, right Qualifiers: Encounter type: initial encounter Qualified Code(s): S60.221A - Contusion of right hand, initial encounter Sprain of finger of right hand Qualifiers: Encounter type: initial encounter Finger: little finger - Discharge Information Instructions: Cast or Splint Care, Adult, [id number], Finger Sprain, Easy-to- Read Referrals: PCP,None [Primary Care Provider] - Forms: ED Department Discharge Additional Instructions: Wear the splint for the next few days. Elevate when able to reduce any swelling and pain. Apply ice to affected area as needed throughout the course today. Take Tylenol and ibuprofen in alternating fashion for pain. Refrain from any activities that cause worsening pain. Follow-up with PCP as needed. Return to the ED for any new or worsening symptoms. n
--- NOTE | 2017-07-11 09:13 | CR ---
Right fifth finger: Four portable views of the right fifth finger were obtained. Comparison: No previous study. Joint spaces are preserved. Minimal calcification off the distal middle phalanx is seen on one view possibly due to very minimal chip fracture. No additional bony abnormality is seen. Soft tissue swelling is noted. Impression: 1. Minimal calcification as described above. 2. Soft tissue swelling. Diagnostic code #3
== END 2017-07-10 14:46 | disposition home or self-care (01) ==
LOC: JD.ED 13:18
DX: S63.656A Sprain of metacarpophalangeal joint of right little finger, initial encounter (principal); J45.909 Unspecified asthma, uncomplicated; F32.9 Major depressive disorder, single episode, unspecified; F41.9 Anxiety disorder, unspecified; W01.0XXA Fall on same level from slipping, tripping and stumbling without subsequent striking against object, initial encounter
CPT/HCPCS: 73140-26-F9; 73140-F9; 99283

== ENCOUNTER 2018-05-17 05:30 | Inpatient (IN) | payer MEDICAID ==
[~2018-05-17 05:30] MED LIST: Bupivacaine 0.25% 10 ML SDV ONE; Lidocaine 1.5% with EPINEPHrine 1:200,000 5 ML Amp ONE; Lidocaine 2% with EPINEPHrine 1:200,000 20 ML SDV ONE
[2018-05-17] MEDS ORDERED: Lactated Ringers 1,000 ML ONE (07:26)
[2018-05-17] MEDS ORDERED: Sodium Chloride 0.9% 10 ML Syringe FLUSH PRN (07:33)
[2018-05-17] MEDS ORDERED: Ondansetron 4 MG/2 ML SDV IVPUSH PRN ×2 (07:33→10:30)
[2018-05-17] MEDS ORDERED: Nalbuphine 20 MG/ML 1 ML Syringe IVPUSH PRN (07:33)
[2018-05-17] MEDS ORDERED: Oxytocin/Lactated Ringers 10 UNIT/1,000 ML BAG IV SCH (07:45)
[2018-05-17] MEDS: Lactated Ringers 1,000 ML IV SCH ×4 (07:56→16:17)
[2018-05-17] MEDS ORDERED: fentaNYL 100 MCG/2 ML SDV EPIDUR PRN (10:30)
[2018-05-17] MEDS ORDERED: fentaNYL/Bupivacaine-NS 2 MCG/ML-0.125%/PF 100 ML Bag EP SCH (10:30)
[2018-05-17] MEDS ORDERED: diphenhydrAMINE 50 MG/ML SDV IVPUSH PRN (10:30)
[2018-05-17] MEDS ORDERED: ePHEDrine 50 MG/ML SDV IVPUSH PRN (10:30)
--- NOTE | 2018-05-17 12:13 | PCM.PREANE ---
Preanesthetic Assessment - Anesthesia/Transfusion/Family Hx Anesthesia History: Prior Anesthesia Without Reaction Family History of Anesthesia Reaction: No Transfusion History: Prior Transfusion Without Reaction Intubation History: Unknown - Review of Systems General: No Symptoms Pulmonary: No Symptoms, Other (History of asthma, triggered when she gets a respiratory illness. ) Cardiovascular: No Symptoms Gastrointestinal: No Symptoms Neurological: No Symptoms Other: Reports: Depression, Anxiety - Physical Assessment O2 Sat by Pulse Oximetry: 97 Respiratory Rate: 16 Vital Signs: Last Vital Signs Temp 37.2 C 05/17/18 07:58 Pulse 85 05/17/18 07:58 Resp 16 05/17/18 07:58 BP 123/69 05/17/18 07:58 Pulse Ox 97 05/17/18 07:58 Height: 1.75 m Weight: 156.036 kg ASA Class: 2 Mental Status: Alert & Oriented x3 Airway Class: Mallampati = 2 Dentition: Reports: Normal Dentition Thyro-Mental Finger Breadths: 3 Mouth Opening Finger Breadths: 3 ROM/Head Extension: Full Lungs: Clear to Auscultation, Normal Respiratory Effort Cardiovascular: Regular Rate, Regular Rhythm - Lab Values: Laboratory Last Values WBC 10.46 K/mm3 (3.98-10.04) H 05/17/18 08:05 RBC 3.82 M/mm3 (3.98-5.22) L 05/17/18 08:05 Hgb 10.7 gm/L (11.2-15.7) L 05/17/18 08:05 Hct 32.7 % (34.1-44.9) L 05/17/18 08:05 MCV 85.6 fl (79.4-94.8) 05/17/18 08:05 MCH 28.0 pg (25.6-32.2) 05/17/18 08:05 MCHC 32.7 g/dl (32.2-35.5) 05/17/18 08:05 RDW Std Deviation 46.9 fL (36.4-46.3) H 05/17/18 08:05 Plt Count 205 K/mm3 (182-369) 05/17/18 08:05 MPV 9.1 fl (9.4-12.3) L 05/17/18 08:05 - Allergies Allergies/Adverse Reactions: Allergies Allergy/AdvReac Type Severity Reaction Status Date / Time No Known Allergies Allergy Verified 05/07/18 12:10 - Acknowledgements Anesthesia Type Planned: Epidural Pt an Appropriate Candidate for the Planned Anesthesia: Yes Alternatives and Risks of Anesthesia Discussed w Pt/Guardian: Yes Pt/Guardian Understands and Agrees with Anesthesia Plan: Yes PreAnesthesia Questionnaire Respiratory 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: Reports: 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: , 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 Other OB/BYN History: pt has had 3 vaginal deliveries; has never had a misccariage Psychiatric History: Reports: Anxiety, Depression Endocrine/Metabolic History: Reports: Diabetes, Gestational - Past Surgical History Respiratory Surgical History: Reports: None Endocrine Surgical History: Reports: None Other Musculoskeletal Surgeries/Procedures:: left hand surgery - SUBSTANCE USE Smoking Status *Q: Never Smoker Tobacco Use Within Last Twelve Months: No Second Hand Smoke Exposure: No Recreational Drug Use History: No - HOME MEDS Home Medications: Home Meds Pnv No.122/Iron/Folic Acid [ Multi Tablet] 1 tab .ROUTE DAILY 05/17/18 [ History] glyBURIDE [Glyburide] 2.5 mg PO 05/17/18 [History] - CURRENT (IN HOUSE) MEDS Current Meds: Current Medications Diphenhydramine HCl (Benadryl) 25 mg IVPUSH Q6H PRN PRN Reason: Pruritis Ephedrine Sulfate (Ephedrine Sulfate) 5 mg IVPUSH ASDIRECTED PRN PRN Reason: Hypotension Fentanyl (Sublimaze) 100 mcg EPIDUR ONETIME PRN PRN Reason: Pain Fentanyl/Bupivacaine HCl (Qbufhkke-Yitbx-Gu 2 Mcg/Ml-0.125%) 100 ml EP ASDIRECTED KAUR Lactated Ringer's (Ringers, Lactated) 1,000 mls @ 100 mls/hr IV ASDIRECTED KAUR Last Admin: 05/17/18 07:56 Dose: 100 mls/hr Oxytocin/Lactated Ringer's (Pitocin In Lr 10 Units/1,000 Ml) 10 unit in 1,000 mls @ 12 mls/hr IV TITRATE KAUR; Protocol Last Titration: 05/17/18 12:06 Dose: 12 munits/min, 72 mls/hr Nalbuphine HCl (Nubain) 10 mg IVPUSH Q2H PRN PRN Reason: pain Ondansetron HCl (Zofran) 4 mg IVPUSH Q4H PRN PRN Reason: Nausea/Vomiting Ondansetron HCl (Zofran) 4 mg IVPUSH ONETIME PRN PRN Reason: Nausea/Vomiting Sodium Chloride (Saline Flush) 10 ml FLUSH ASDIRECTED PRN PRN Reason: Keep Vein Open Discontinued Medications Lactated Ringer's (Ringers, Lactated) Confirm Administered Dose 1,000 mls @ as directed .ROUTE .[employer] ONE Stop: 05/17/18 07:27
[2018-05-17] MEDS ORDERED: Sodium Chloride 0.9% 1,000 ML ONE (16:49)
--- NOTE | 2018-05-17 17:35 | PCM.SN ---
- Free Text/Narrative Note: Kriss is a 32-year-old 5 para 4014 white female who was admitted this a.m. for elective induction of labor. 38-1/7 week gestational age on admission. She underwent Pitocin induction of labor with artificial rupture membranes augmentation. She progressed quickly to complete cervical dilation, pushed 3 times and delivered a viable, jenkins, female infant with Apgars of 6 and 9, weight of 3520 g (7 pounds 12.2 ounces) in a left occiput anterior position at 1703 hrs. on 05/17/2018. Loose Nuchal cord 1 was reduced over the baby's head after delivery of the head. Some mom's abdomen. Nose and mouth were bulb suctioned. Cord was locked pulsate 1 minute that was clamped 2 and cut by the baby's father Lacerations and no suturing was necessary. Cord blood was obtained. The placenta delivered in a spontaneous fashion, Villafana presentationappeared intact and complete and was discarded per patient desire. Blood loss was 100 mL.
[2018-05-17] MEDS ORDERED: Witch Hazel Medicated Pads 100/Jar TOP PRN (18:36)
[2018-05-17] MEDS ORDERED: Lanolin 100% Cream 7 GM Tube TOP PRN (18:36)
[2018-05-17] MEDS ORDERED: Acetaminophen 325 MG Tab PO PRN (18:36)
[2018-05-17] MEDS ORDERED: Docusate Sodium 100 MG Cap PO PRN (18:36)
[2018-05-17] MEDS ORDERED: Benzocaine/Menthol 20%-0.5% Spray 56 GM Canister TOP PRN (18:36)
[2018-05-17] MEDS: Ibuprofen 600 MG Tab PO PRN (22:07)
[2018-05-18] MEDS: Ibuprofen 600 MG Tab PO PRN ×2 (06:37→15:05)
--- NOTE | 2018-05-18 07:34 | HP ---
DATE OF ADMISSION: 05/17/2018 ADMISSION DIAGNOSES: A 38 and 1/7th weeks intrauterine , gestational diabetes, elective induction of labor. HISTORY OF PRESENT ILLNESS: The patient is a 32-year-old, 5, para 3-0-1-3, white female, who was admitted at 38 and 1/7th weeks gestational age with an MIKE of 05/30/2018 for elective induction of labor. The patient's course has been remarkable for gestational diabetes, initially controlled with diet alone, but then controlled with glyburide 2.5 mg p.o. at bedtime. Also, risk factors for the include body mass index of 49.6. Increased anxiety during the . Also, history of asthma. The patient is also Rh negative with A- negative blood. She has received RhoGAM during the course of the . She also has a history of thrombocytopenia, but most recent platelet count was 279 at the end of second trimester. COURSE: The patient was seen early in the at approximately 10 weeks gestational age. She gained approximately 2 pounds during the course of the . Fundal height growth has been difficult to assess because of her obesity. Vital signs have been stable throughout the . The patient had menarche at age 11. Her last menstrual period started on 08/23/2017. She is very certain about her last menstrual period. She had not been using any control at the time of conception. MIKE is set at 05/30/2018 by LMP and is supported by a number of ultrasounds since that time. PAST OBSTETRIC HISTORY: Includes the followin. Term at 37 weeks, delivered on 11/09/2005 - 7 pounds 7 ounces - male infant - - [place], [place] - preeclampsia. Child's name is Clyde. 2. Male infant born on [birth year]09[birth year]2011 at 36 weeks gestational age, 32 hours of labor. Male - normal spontaneous vaginal delivery - epidural used - gestational diabetes - child's name is Son. 3. Male born on 08/[birth year]2016 at 38 and 2/7th weeks gestational age - 16 hours of labor - 7 pounds 4 ounces - - epidural - child's name is Michelle Harris. 4. Miscarriage at 6 weeks gestational age on 05/20/2017. LABORATORY DATA: Laboratory testing in shows blood to be A negative with a negative antibody screen. Hemoglobin at first visit was 11.6. Platelets were 257,000. The patient is rubella immune. RPR is nonreactive. Urine culture showed Gardnerella vaginalis and the patient was treated for this with metronidazole. Her hepatitis B surface antigen and HIV assays were both negative. Chlamydia and gonorrhea tests were both negative. Second trimester testing showed a hemoglobin of 11.3 g/dL, platelets were 279,000. Her 1-hour GTT was 136. Her 3-hour GTT showed a fasting blood sugar of 99. A 1-hour glucose was 222, 2-hour glucose was 154, and a 3-hour glucose was 74. The patient was diagnosed with gestational diabetes and placed on diet and blood sugar evaluations. On 03/09/2018, she had an antibody screen which is negative and received RhoGAM at that time. Her group B Strep screen is negative. ALLERGIES: None. CURRENT MEDICATIONS: 1. Glyburide 2.5 mg daily at bedtime. 2. vitamins daily. 3. ProAir HFA inhalation aerosol solution 1 to 2 puffs every 4 to 6 hours p.r.n. The patient has used only infrequently. The patient has received influenza vaccination. Her Tdap was last given during the course of the and she is rubella immune. PAST MEDICAL HISTORY: 1. Normal spontaneous vaginal delivery x3. 2. Miscarriage x1 at 6 weeks gestational age. 3. Preeclampsia with first . 4. Depression and anxiety, was on medications in the past. 5. Asthma. 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 FAMILY HISTORY: Mother is alive but has a history of thyroid cancer. Father is alive and well. One sister is alive and well. Maternal grandfather is secondary to chronic obstructive pulmonary disease - was a smoker. Maternal grandmother is secondary to lung cancer - was a smoker. Paternal grandfather is alive with diabetes. Paternal grandmother is secondary to lung cancer - was a smoker. Family history of cancer. -related issues not seen. No bleeding or blood clotting disorders noted. Mother did have some problems with anesthesia. SOCIAL HISTORY: The patient is . Her significant other is Johnathon Woods. She lives in [place], [place]. She does not use any significant amounts of alcohol, drugs, or tobacco. REVIEW OF SYSTEMS: GENERAL: The patient has no major concerns. She finds the baby is very active. SKIN: The patient has had some lesions during the course of her , which have now resolved. They are in the form of pimples around her abdomen. HEENT: Negative. CARDIOVASCULAR: No chest pain or exercise intolerance. RESPIRATORY: No shortness of breath or infectious symptoms. BREASTS: Changes associated with . GASTROINTESTINAL: Negative. GENITOURINARY: Changes associated with . MUSCULOSKELETAL: No swelling, joint pain, or other problems. NEUROLOGIC: Unremarkable. PHYSICAL EXAMINATION: GENERAL: On last evaluation in the clinic, the patient is a well-developed, well-nourished, massively obese white female, in no acute distress. VITAL SIGNS: Her blood pressure is 130/82, weight was 341.2 with weight at her first visit being 339.6 pounds. heart rate was 144. HEENT: Within normal limits. NECK: Within normal limits. BACK: Within normal limits. LUNGS: Clear with good breath sounds in all lung morin. CARDIOVASCULAR: Shows regular rate and rhythm without murmurs. ABDOMEN: Obese, very difficult to evaluate, fundal height is at 43 cm. Baby is in a vertex presentation. GENITOURINARY: Cervical exam shows cervix to be 2+ cm/80% effaced, soft, -5 station, mid position. EXTREMITIES: Show trace edema, otherwise unremarkable. NEUROLOGIC: Unremarkable. SKIN: Unremarkable. ASSESSMENT: 1. A 38 and 1/7th week intrauterine , admitted for elective induction of labor. 2. Risk factors for the include history of asthma, A-negative blood, massive obesity, gestational diabetes, history of anxiety/depression, previously on medications. 3. The patient desires epidural for labor analgesia. 4. Rh negative blood - the patient is a candidate for Rh immunoglobulin therapy. 5. Group B Strep screen negative. 6. Rubella immune and MMR negative. PLAN: 1. Pitocin induction of labor with artificial rupture of membranes when head descends to the appropriate level. Procedure, risks, benefits were discussed with the patient. 2. Last ultrasound shows an estimated weight of 7 pounds 4 ounces. 3. Epidural for pain control. 4. Routine care. MMODAL /[id number]
--- NOTE | 2018-05-19 05:37 | PCM.SN ---
- Free Text/Narrative Note: note for 05/18/2018: Patient is doing well in the period. Minimal lochia, voiding well, ambulated without problems. Nursing without concerns. Patient is afebrile, vital signs are stable Abdomen is flat, soft, uterus is below the umbilicus and is firm and nontender. Legs are nontender. Assessment: recovery going well. Plan: Routine care. Patient be discharged home within the next 24 hours.
--- NOTE | 2018-05-19 05:40 | PCM.DCSUM1 ---
Discharge Summary - Hospital Course Free Text/Narrative:: Kriss is a 32-year-old 5 para 4014 white female who was admitted this a.m. for elective induction of labor. 38-1/7 week gestational age on admission. She underwent Pitocin induction of labor with artificial rupture membranes augmentation. She progressed quickly to complete cervical dilation, pushed 3 times and delivered a viable, jenkins, female infant with Apgars of 6 and 9, weight of 3520 g (7 pounds 12.2 ounces) in a left occiput anterior position at 1703 hrs. on 05/17/2018. Loose Nuchal cord 1 was reduced over the baby's head after delivery of the head. Some mom's abdomen. Nose and mouth were bulb suctioned. Cord was locked pulsate 1 minute that was clamped 2 and cut by the baby's father Lacerations and no suturing was necessary. Cord blood was obtained. The placenta delivered in a spontaneous fashion, Villafana presentationappeared intact and complete and was discarded per patient desire. Blood loss was 100 mL. patient been up and around well. She has minimal lochia. She is voiding well. She is breast-feeding. She is desiring discharge home. - Discharge Data Discharge Date: 05/19/18 Discharge Disposition: Home, Self-Care 01 Condition: Good - Patient Instructions Diet: Regular Diet as Tolerated (Nursing diet with increase calories and calcium is recommended) Activity: As Tolerated (No intercourse tampons still bleeding resolves) Driving: Do Not Drive (2 days) Showering/Bathing: May Shower (May take a bath also) Notify Provider of: Fever, Increased Pain, Swelling and Redness, Nausea and/or Vomiting - Discharge Plan Home Medications: Home Meds Pnv No.122/Iron/Folic Acid [ Multi Tablet] 1 tab .ROUTE DAILY 05/17/18 [ History] Acetaminophen [Tylenol] 650 mg PO Q4H PRN tablet 05/19/18 [Rx] Ibuprofen [Motrin] 600 mg PO Q4H PRN tablet 05/19/18 [Rx] Referrals: Garrison Hurtado MD [Primary Care Provider] - (Return to clinic2 weeksDr. Bryant or Anushka pickens CNP) - Discharge Summary/Plan Comment DC Time >30 min.: No Discharge Summary/Plan Comment: Discharge instructions: 1. Discharge home 2. Diet, activity and follow-up discussed with patient. Recommend nursing diet with increased calories and calcium. 3. Precautions given concern increased pain, bleeding, temperature, signs/ symptoms of DVT/PE. 4. Medications per home medication was printed, discussed with and given to the patient. 5. Return to clinic-Dr. Hurtado or Anushka pickens [facility]-- [place] in 2 weeks. Diagnosis: Term -delivered Condition: Good - Patient Data Vitals - Most Recent: Last Vital Signs Temp 36.2 C 05/19/18 04:14 Pulse 71 05/19/18 04:14 Resp 18 05/19/18 04:14 BP 130/84 05/19/18 04:14 Pulse Ox 99 05/19/18 04:14 Weight - Most Recent: 156.036 kg I&O - Last 24 hours: Intake & Output 05/18/18 05/18/18 05/19/18 14:59 22:59 06:59 Intake Total 121 520 Balance 121 520 Lab Results - Last 24 hrs: Laboratory Results - last 24 hr 05/17/18 Range/Units 23:40 Blood Type A NEGATIVE Gel Antibody Screen Negative Screen 0 ros/5 flds - neg RhIG Candidate? Yes Rhogam Indicated Yes, baby rh unknown H Med Orders - Current: Current Medications Acetaminophen (Tylenol) 650 mg PO Q4H PRN PRN Reason: mild pain or fever Last Admin: 05/18/18 22:18 Dose: 650 mg Benzocaine/Menthol (Dermoplast Pain Relief Woodson) 0 gm TOP ASDIRECTED PRN PRN Reason: Perineal Comfort Measure Last Admin: 05/17/18 20:30 Dose: 1 canister Docusate Sodium (Colace) 100 mg PO BID PRN PRN Reason: Constipation Emollient Ointment (Lansinoh Hpa) 0 gm TOP ASDIRECTED PRN PRN Reason: Sore Nipples Ibuprofen (Motrin) 600 mg PO Q4H PRN PRN Reason: Mild pain or fever Last Admin: 05/18/18 15:05 Dose: 600 mg Witch Rebekah (Tucks) 1 pad TOP ASDIRECTED PRN PRN Reason: Hemorrhoid pain Last Admin: 05/17/18 20:30 Dose: 1 applic Discontinued Medications Bupivacaine HCl (Sensorcaine-Mpf 0.25%) 10 ml .ROUTE .STK-MED ONE Stop: 05/17/17 22:01 Diphenhydramine HCl (Benadryl) 25 mg IVPUSH Q6H PRN PRN Reason: Pruritis Ephedrine Sulfate (Ephedrine Sulfate) 5 mg IVPUSH ASDIRECTED PRN PRN Reason: Hypotension Fentanyl (Sublimaze) 100 mcg EPIDUR ONETIME PRN PRN Reason: Pain Fentanyl/Bupivacaine HCl (Mraxxcpg-Ubkxd-Iq 2 Mcg/Ml-0.125%) 100 ml EP ASDIRECTED KAUR Lactated Ringer's (Ringers, Lactated) Confirm Administered Dose 1,000 mls @ as directed .ROUTE .STK-MED ONE Stop: 05/17/18 07:27 Lactated Ringer's (Ringers, Lactated) 1,000 mls @ 100 mls/hr IV ASDIRECTED KAUR Last Admin: 05/17/18 16:17 Dose: 100 mls/hr Oxytocin/Lactated Ringer's (Pitocin In Lr 10 Units/1,000 Ml) 10 unit in 1,000 mls @ 12 mls/hr IV TITRATE KAUR; Protocol Last Titration: 05/17/18 13:52 Dose: 10 munits/min, 60 mls/hr Sodium Chloride (Normal Saline) Confirm Administered Dose 1,000 mls @ as directed .ROUTE .STK-MED ONE Stop: 05/17/18 16:50 Lidocaine/Epinephrine (Xylocaine-Mpf 2%-Epi 1:200,000) 20 ml .ROUTE .STK-MED ONE Stop: 05/17/17 22:01 Lidocaine/Epinephrine (Xylocaine-Mpf 1.5% W/Epinephrine 1:200,000) 5 ml .ROUTE .STK-MED ONE Stop: 05/17/17 22:01 Nalbuphine HCl (Nubain) 10 mg IVPUSH Q2H PRN PRN Reason: pain Ondansetron HCl (Zofran) 4 mg IVPUSH Q4H PRN PRN Reason: Nausea/Vomiting Ondansetron HCl (Zofran) 4 mg IVPUSH ONETIME PRN PRN Reason: Nausea/Vomiting Sodium Chloride (Saline Flush) 10 ml FLUSH ASDIRECTED PRN PRN Reason: Keep Vein Open
[2018-05-19 11:51] VITALS: BP 125/52
== END 2018-05-19 11:50 | disposition home or self-care (01) | DRG 806 ==
LOC: JD.OB 06:58 → OBSVTOIN 17:03 → JD.OB 17:20 → JD.MS 05-18 21:00
PROVIDERS: ADMIT Obstetrics & Gynecology; ATTEND Obstetrics & Gynecology
PROC: 6A550ZT Pheresis of Cord Blood Stem Cells, Single (ICD-10-PCS; principal; 2018-05-17)
PROC: 3E0R3BZ Introduction of Anesthetic Agent into Spinal Canal, Percutaneous Approach (ICD-10-PCS; 2018-05-17)
DX: O24.415 Gestational diabetes mellitus in pregnancy, controlled by oral hypoglycemic drugs (principal); O24.425 Gestational diabetes mellitus in childbirth, controlled by oral hypoglycemic drugs; O99.12 Other diseases of the blood and blood-forming organs and certain disorders involving the immune mechanism complicating childbirth; Z37.0 Single live birth; O69.81X0 Labor and delivery complicated by cord around neck, without compression, not applicable or unspecified; Z3A.38 38 weeks gestation of pregnancy; O99.344 Other mental disorders complicating childbirth; O99.113 Other diseases of the blood and blood-forming organs and certain disorders involving the immune mechanism complicating pregnancy, third trimester; D69.6 Thrombocytopenia, unspecified; O99.52 Diseases of the respiratory system complicating childbirth; O99.343 Other mental disorders complicating pregnancy, third trimester; F41.9 Anxiety disorder, unspecified; O99.214 Obesity complicating childbirth; F32.9 Major depressive disorder, single episode, unspecified; O99.513 Diseases of the respiratory system complicating pregnancy, third trimester; J45.909 Unspecified asthma, uncomplicated; O99.213 Obesity complicating pregnancy, third trimester; E66.01 Morbid (severe) obesity due to excess calories
CPT/HCPCS: 36415; 51702; 59025; 59409; 85027; 85461; 86592; 86850; 86900; 86901; A9270-GY; J2590; J2790; J7120

== ENCOUNTER 2019-02-11 14:32 | Emergency (ER) | payer MEDICAID ==
[2019-02-11 14:55] VITALS: BP 145/92; PULSE 98
--- NOTE | 2019-02-11 14:58 | EDM.PDOC ---
ED HPI GENERAL MEDICAL PROBLEM - General Chief Complaint: Respiratory Problem Stated Complaint: COUGH,FEVER AND BODY ACHES Time Seen by Provider: 02/11/19 14:48 Source of Information: Reports: Patient History Limitations: Reports: No Limitations - History of Present Illness INITIAL COMMENTS - FREE TEXT/NARRATIVE: 33-year-old female presents the ED with a productive cough for the better part of 2 months. Much worse over the last 5 days. Her son has been home sick for the last 9 days with productive cough fever chills and body aches. She is coughing up greenish sputum. Coughing is much worse when she tries to lie down at night. Appetite has been poor. She was seen in the walk-in clinic on February 09 and tested negative for influenza virus. Placed on a albuterol inhaler which is not helping. Onset: Unknown/Unsure (She has been coughing on and off for the better part of 2 months. Worse the last 5 days.) Onset Date: 02/07/19 Duration: Day(s):, Getting Worse Location: Reports: Chest (Severe productive sounding cough.) Quality: Reports: Ache Severity: Moderate (Central chest from coughing so much.) Improves with: Reports: None Worsens with: Reports: Other Context: Reports: Sick Contact (Her son was age 13 became sick 4 days before she did.). Denies: Activity, Exercise (Owing down flat and exposure to cool night air makes the coughing worse.), Lifting, Trauma, Other Associated Symptoms: Reports: Chest Pain, Cough (Central chest pain from coughing so much.), cough w sputum, Diaphoresis, Fever/Chills, Headaches, Loss of Appetite, Malaise, Nausea/Vomiting, Shortness of Breath. 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 History: Reports: , Spontaneous Other FIRST PRESS OPERATOR History: pt has had 3 vaginal deliveries; has never had a misccariage Psychiatric History: Reports: Anxiety, Depression Endocrine/Metabolic History: Reports: Diabetes, Gestational - Past Surgical History Respiratory Surgical History: Reports: None Endocrine Surgical History: Reports: None Other Musculoskeletal Surgeries/Procedures:: left hand surgery Social & Family History - Family History Family Medical History: Noncontributory - Caffeine Use Caffeine Use: Reports: None - Living Situation & Occupation Living situation: Reports: Single Occupation: Unemployed ED ROS GENERAL - Review of Systems Review Of Systems: See Below Constitutional: Reports: Fever, Chills, Malaise, Weakness, Fatigue, Decreased Appetite HEENT: Reports: Throat Pain (From coughing so much) Respiratory: Reports: Shortness of Breath, Wheezing, Cough, Sputum. Denies: Pleuritic Chest Pain, Hemoptysis Cardiovascular: Reports: Chest Pain (Greenish color to it at times), Dyspnea on Exertion, Lightheadedness. Denies: Blood Pressure Problem ( central chest pain from coughing.), Claudication, Edema (Coughing will make her lightheaded at times.), Orthopnea, Palpitations Endocrine: Reports: Fatigue GI/Abdominal: Reports: Decreased Appetite, Vomiting (Post tussive emesis on a few occasions.) : Reports: No Symptoms Musculoskeletal: Reports: No Symptoms Skin: Reports: No Symptoms Neurological: Reports: No Symptoms Psychiatric: Reports: No Symptoms Hematologic/Lymphatic: Reports: No Symptoms Immunologic: Reports: No Symptoms ED EXAM, GENERAL - Physical Exam Exam: See Below Exam Limited By: No Limitations General Appearance: Alert, WD/WN, Mild Distress, Other (Very productive sounding cough. Temperatures 37.3 pulse is 98 respiratory is 19 set to 95% on room air BP 1 4592.) Eye Exam: Bilateral Eye: Normal Inspection Ears: Other (Bilateral very mild serous otitis media.) Ear Exam: Bilateral Ear: TM Dull Throat/Mouth: Normal Inspection, Normal Lips, Normal Teeth, Normal Oropharynx Head: Atraumatic, Normocephalic Neck: Normal Inspection, Supple, Non-Tender, Full Range of Motion. No: Lymphadenopathy (L), Lymphadenopathy (R) Respiratory/Chest: No Respiratory Distress, No Accessory Muscle Use, Chest Non- Tender, Respiratory Distress (Mild tachypnea.), Rhonchi, Wheezing (Rhonchi throughout the posterior left lung morin with occasional scattered wheezes. Left posterior lung field.) Cardiovascular: Normal Peripheral Pulses, Regular Rate, Rhythm, No Edema, No Gallop, No Murmur, No Rub Peripheral Pulses: 3+: Posterior Tibial (L), Posterior Tibial (R), Dorsalis Pedis (L), Dorsalis Pedis (R) Extremities: Normal Inspection, Normal Range of Motion, Non-Tender, No Pedal Edema Neurological: Alert, Oriented, CN II-XII Intact, Normal Cognition Psychiatric: Normal Affect, Normal Mood Skin Exam: Warm, Dry, Normal Color, No Rash Course - Vital Signs Last Recorded V/S: Last Vital Signs Temp 37.3 C 02/11/19 14:49 Pulse 98 02/11/19 14:49 Resp 19 02/11/19 14:49 BP 145/92 H 02/11/19 14:49 Pulse Ox 95 02/11/19 14:49 - Orders/Labs/Meds Meds: Medications Discontinued Medications Generic Name Dose Route Start Last Admin Trade Name Freq PRN Reason Stop Dose Admin Doxycycline Hyclate 200 mg 02/11/19 15:33 02/11/19 15:54 Vibramycin PO 02/11/19 15:34 200 mg ONETIME ONE Administration - Radiology Interpretation Free Text/Narrative:: 33-year-old female presents to the ED with a severe paroxysmal productive sounding cough that she states she's had off and on for the last 2 months but much worse the last 5 days. Her 13-year-old son is ill for the last 9 days with body aches productive cough and loss of appetite. Both were tested for influenza viral infection the clinic on Tuesday 5 days ago were negative. On examination bilateral serous otitis media present. Reference is clear. Chest shows congestion throughout the left posterior lung field with some wheezing and rhonchi. Plan 1 view chest x-ray to be done. - Re-Assessments/Exams Free Text/Narrative Re-Assessment/Exam: 02/11/19 15:25 : Chest x-ray done portably reveals a significant consolidated pneumonia right upper lobe of the lung. The left lung appears to be clear. Heart size and mediastinum are normal. She to be started on Doxil cycle 100 mg twice daily for 10 days. Initial tablets will be ruled out. Body to the ED today since a doctor is already closed. I will be placing her on Tussionex are pending test cough syrup 5 mils primarily at bedtime to help so she did not coughing all night long. Also refilled her albuterol hand-held nebulizer 2 puffs every 4 hours as needed for relief of cough and wheezing. Open clinic in 2 weeks' time. Departure - Departure Time of Disposition: 15:38 Disposition: Home, Self-Care 01 Condition: Fair Clinical Impression: Pneumonia Qualifiers: Pneumonia type: due to unspecified organism Laterality: right Lung location: upper lobe of lung Qualified Code(s): J18.1 - Lobar pneumonia, unspecified organism - Discharge Information *PRESCRIPTION DRUG MONITORING PROGRAM REVIEWED*: Not Applicable *COPY OF PRESCRIPTION DRUG MONITORING REPORT IN PATIENT CAITY: Not Applicable Prescriptions: Doxycycline [Vibramycin] 100 mg PO BID #20 cap Instructions: Community-Acquired Pneumonia, Adult, [id number] Referrals: Anushka Davalos HEADING AND PRIMING OPERATOR [Primary Care Provider] - Forms: ED Department Discharge, ED Return to Work/School Form Additional Instructions: Evaluation the emergency room today in regards to very productive sounding cough fever chills and bodyaches for the last 5 days. Coughing hard for the last 2 months by history. Emanation reveals congestion in both posterior lung morin. Chest x-ray confirms a consolidated pneumonia right upper lobe of the lung. Treatment is therefore antibiotic Dr. Mcclure came started in the ED 100 mg twice daily for 10 days. Tussionex cough syrup 5 mils primarily at bedtime about an hour before headed for bed to relieve cough overnight. Just off work for at least 3 days and probably 5.
--- NOTE | 2019-02-11 15:12 | CR ---
Chest: Portable view of the chest was obtained. Comparison: Prior chest x-ray of 05/27/12. Consolidating density within right upper lung. Left lungs clear. Heart size and mediastinum are normal. Bony structures are unremarkable. Impression: 1. Consolidating density within the right upper lung. Findings are suspicious for pneumonia. Diagnostic code #3
[2019-02-11] MEDS ORDERED: Doxycycline 100 MG Cap PO ONE (15:33)
== END 2019-02-11 16:05 | disposition home or self-care (01) ==
LOC: JD.ED 14:32
DX: J18.1 Lobar pneumonia, unspecified organism (principal); J45.909 Unspecified asthma, uncomplicated
CPT/HCPCS: 71045; 99283; A9270

== ENCOUNTER 2020-01-27 15:59 | Emergency (ER) | payer BC ==
[2020-01-27 16:26] VITALS: BP 176/103; PULSE 102
[2020-01-27] MEDS ORDERED: LORazepam 0.5 MG Tab PO ONE (17:30)
[2020-01-27] MEDS ORDERED: Ketorolac 60 MG/2 ML SDV IM ONE (17:31)
--- NOTE | 2020-01-27 17:36 | EDM.PDOC ---
ED HPI GENERAL MEDICAL PROBLEM - General Chief Complaint: Back Pain or Injury Stated Complaint: LOWER BACK PAIN AND INTO LEGS Time Seen by Provider: 01/27/20 17:17 Source of Information: Reports: Patient, RN Notes Reviewed History Limitations: Reports: No Limitations - History of Present Illness INITIAL COMMENTS - FREE TEXT/NARRATIVE: Patient is a 34-year-old female who presents to the ED for her back pain. Patient notes she has been having increased back pain, for roughly 3 months. She states she had a 3 months ago, and she notes that her back is not really felt right since then. She was using the chiropractor, 2 times a week for a few weeks, but she notes she has not gone in a few weeks, she states that today she is having excruciating pain in her bilateral back, does seem to shoot down both of her legs, but worse so on the right. She would rate this at a 10 out of 10, she does note this is a sharp shooting pain, does seem to come to go up and down her back as well. She states is very painful to walk, she was using Tylenol, but this does not seem to be doing much for her. She is not having any fevers or chills, cough or shortness of breath, states that she is pretty anxious about being here, so she is wondering if the anxiety has not made this worse as well. She was given tramadol after her , but states she did not take much of it as she did not like the way it made her feel. She is not having any numbness or tingling into her feet. She did not have any back issues prior to the . Denies any urinary issues. Lower Back Pain Score (Numeric/FACES): 10 - Related Data Allergies Allergy/AdvReac Type Severity Reaction Status Date / Time No Known Allergies Allergy Verified 01/27/20 16:51 Home Meds: Home Meds Acetaminophen/oxyCODONE [Percocet 325-5 MG] 1 each PO Q6H PRN #12 tab 01/27/20 [Rx] Cefdinir [Omnicef] 300 mg PO BID 5 Days #10 cap 01/27/20 [Rx] LORazepam [Ativan] 1 mg PO TID PRN #12 tab 01/27/20 [Rx] Sertraline [Zoloft] 50 mg PO DAILY 01/27/20 [History] predniSONE 20 mg PO ASDIRECTED #15 tab 01/27/20 [Rx] Past Medical History Respiratory History: Reports: Asthma TIN CAN FEEDER History: Reports: , Spontaneous Other TIN CAN FEEDER History: pt has had 3 vaginal deliveries 1 c/s Psychiatric History: Reports: Anxiety, Depression Endocrine/Metabolic History: Reports: Diabetes, Gestational Other Endocrine/Metabolic History: prediabetes - Past Surgical History Respiratory Surgical History: Reports: None Female Surgical History: Reports: Section Endocrine Surgical History: Reports: None Other Musculoskeletal Surgeries/Procedures:: left hand surgery Social & Family History - Family History Family Medical History: Noncontributory - Tobacco Use Smoking Status *Q: Never Smoker - Caffeine Use Caffeine Use: Reports: Coffee, Soda - Recreational Drug Use Recreational Drug Use: No - Living Situation & Occupation Living situation: Reports: Single Occupation: Unemployed ED ROS GENERAL - Review of Systems Review Of Systems: Comprehensive ROS is negative, except as noted in HPI. ED EXAM,LOWER BACK PAIN/INJURY - Physical Exam Exam: See Below Exam Limited By: No Limitations General Appearance: Alert, WD/WN, No Apparent Distress Respiratory/Chest: No Respiratory Distress, Lungs Clear, Normal Breath Sounds, No Accessory Muscle Use, Chest Non-Tender Cardiovascular: Normal Peripheral Pulses, Regular Rate, Rhythm, No Murmur Extremities: Normal Inspection, Normal Capillary Refill Neurological: Alert, Normal Mood/Affect, Normal Dorsiflexion, Normal Plantar Flexion, No Motor/Sensory Deficits Psychiatric: Normal Affect, Normal Mood Skin Exam: Warm, Dry, Intact, Normal Color, No Rash Course - Vital Signs Last Recorded V/S: Last Vital Signs Temp 98.6 F 01/27/20 16:23 Pulse 102 H 01/27/20 16:23 Resp 20 01/27/20 16:23 BP 176/103 H 01/27/20 16:23 Pulse Ox 94 L 01/27/20 16:23 - Orders/Labs/Meds Orders: Active Orders 24 hr Category Date Time Status Lumbar Spine 2 or 3V [CR] Stat Exams 01/27/20 18:00 Ordered CULTURE URINE [RM] Routine Lab 01/27/20 18:31 Ordered Labs: Laboratory Tests 01/27/20 Range/Units 17:43 Urine Color Yellow (Yellow) Urine Appearance Slt cloudy H (Clear) Urine pH 6.0 (5.0-8.0) Ur Specific [place] > or = 1.030 (1.005-1.030) Urine Protein Negative (Negative) Urine Glucose (UA) Negative (Negative) Urine Ketones Negative (Negative) Urine Occult Blood Negative (Negative) Urine Nitrite Negative (Negative) Urine Bilirubin Negative (Negative) Urine Urobilinogen 0.2 (0.2-1.0) Ur Leukocyte Esterase Trace H (Negative) Urine RBC 0-5 (0-5) /hpf Urine WBC 5-10 H (0-5) /hpf Ur Squamous Epith Cells 10-20 H (0-5) /hpf Urine Bacteria Few (FEW) /hpf Urine Mucus Few (FEW) /hpf Meds: Medications Discontinued Medications Generic Name Dose Route Start Last Admin Trade Name Merrick PRN Reason Stop Dose Admin Cefdinir 300 mg 01/27/20 19:40 Omnicef PO 01/27/20 19:41 ONETIME ONE Ketorolac Tromethamine 60 mg 01/27/20 17:31 01/27/20 17:38 Toradol IM 01/27/20 17:32 60 mg ONETIME ONE Administration Lorazepam 1 mg 01/27/20 17:30 01/27/20 17:38 Ativan PO 01/27/20 17:31 1 mg ONETIME ONE Administration Oxycodone/Acetaminophen 2 tab 01/27/20 18:41 01/27/20 19:05 Percocet 325-5 Mg PO 01/27/20 18:42 2 tab ONETIME ONE Administration - Re-Assessments/Exams Free Text/Narrative Re-Assessment/Exam: 01/27/20 17:36 Patient presents to the ED for evaluation of her back pain. I have ordered 1 mg p.o. Ativan along with 60 mg IM Toradol for initial management. Lumbar x-rays will be taken when the patient is a little bit more calm, and more pain-free. She was pretty uncomfortable when sitting on the chair, she states it was very hard to find any sort of position that was comfortable. 01/27/20 18:43 Patient was reassessed at bedside, and she is laying on the cot, appears to be more comfortable. She states that her anxiety has gone down considerably, but she still having quite a bit of pain in her back. Have ordered 2 tablets of Percocet 5/325 mg for initial and further pain management. X-ray films have been taken, they do not show any acute fractures or abnormalities, radiology read is pending. Departure - Departure Time of Disposition: 19:43 Disposition: Home, Self-Care 01 Condition: Good Clinical Impression: Anxiety Back pain Qualifiers: Back pain location: low back pain Chronicity: acute Back pain laterality: bilateral Sciatica presence: with sciatica Sciatica laterality: bilateral sciatica Qualified Code(s): M54.42 - Lumbago with sciatica, left side; M54.41 - Lumbago with sciatica, right side UTI (urinary tract infection) Qualifiers: Urinary tract infection type: acute cystitis Hematuria presence: without hematuria Qualified Code(s): N30.00 - Acute cystitis without hematuria - Discharge Information *PRESCRIPTION DRUG MONITORING PROGRAM REVIEWED*: Yes *COPY OF PRESCRIPTION DRUG MONITORING REPORT IN PATIENT CAITY: No Prescriptions: LORazepam [Ativan] 1 mg PO TID PRN #12 tab PRN Reason: Anxiety Cefdinir [Omnicef] 300 mg PO BID 5 Days #10 cap Acetaminophen/oxyCODONE [Percocet 325-5 MG] 1 each PO Q6H PRN #12 tab PRN Reason: Pain predniSONE 20 mg PO ASDIRECTED #15 tab Referrals: Anushka Davalos CLERK TYPIST [Primary Care Provider] - Forms: ED Department Discharge Additional Instructions: You have been evaluated in the ED for your back pain. Your x-ray demonstrated degenerative disc and degenerative joint disease in your back, this is mild to moderate, and is compatible with arthritis-like changes. You do have your most prominent changes at the level of L4-L5, and L5-S1, this is at the very bottom of your lumbar spine. This is likely what is causing most of your back pain. Due to this radiating down your bilateral hips and right leg, you will be given a prescription for prednisone for further management of this pain Please use ice/heat as tolerated to the affected area. You may take Tylenol 500 mg or ibuprofen 600mg q6 hrs for pain relief. Please do so until you have a tolerable level of pain with activity. Do not exceed 4000mg Tylenol or 3200mg ibuprofen in a 24 hour time period. You were given a prescription for a strong pain medication, oxycodone/acetaminophen 5/325 mg, please take 1 tab every 6 hours as needed for pain not relieved by Tylenol or ibuprofen alone. Please note this medication does contain Tylenol in it, so do not take more than 4000 mg in a 24-hour time span. These medications can be addictive, so please take as few as possible to achieve adequate pain control. These meds can also be quite constipating, recommend that you increase your oral fluid intake and take a stool softener like MiraLAX while taking these medications. Do not drive while taking this medication. You were also given a prescription for Ativan, please take 1 tablet 3 times a day as needed for further anxiety. Recommend that you go home, rest and relax and try not to do a lot of movement over the next day or 2 to help try to allow your back to heal appropriately. If your medication is not seeming to be helping within the next 2 or 3 days, recommend you seek care by your regular care provider for further evaluation and management. Urinalysis also demonstrated a light UTI, you will be started on Omnicef, an antibiotic for this. 1 tablet 2 times a day for the next 5 days. Urine was sent for culture as well to make sure we are picking an appropriate antibiotic. You will be called and made notified if you should need a change in antibiotic, this can take up to 24 to 48 hours. Please return to ED if your symptoms should change or worsen. Sepsis Event Note (ED) - Evaluation Sepsis Screening Result: No Definite Risk - Focused Exam Vital Signs: Vital Signs Temp Pulse Resp BP Pulse Ox 01/27/20 16:23 98.6 F 102 H 20 176/103 H 94 L - My Orders Last 24 Hours: My Active Orders 01/27/20 18:00 Lumbar Spine 2 or 3V [CR] Stat 01/27/20 18:31 CULTURE URINE [RM] Routine - Assessment/Plan Last 24 Hours: My Active Orders 01/27/20 18:00 Lumbar Spine 2 or 3V [CR] Stat 01/27/20 18:31 CULTURE URINE [RM] Routine
[2020-01-27] MEDS ORDERED: Acetaminophen/oxyCODONE 325-5 MG Tab PO ONE ×2 (18:41→19:56)
[2020-01-27] MEDS ORDERED: Cefdinir 300 MG Cap PO ONE (19:40)
--- NOTE | 2020-02-29 12:27 | CR ---
PROCEDURE INFORMATION: Exam: XR Lumbosacral Spine, 2 or 3 Views Exam date and time: 01/27/2020 6:22 PM Age: 34 years old Clinical indication: Patient HX: Low back pain, body habitus limits radiographic study TECHNIQUE: Imaging protocol: XR of the lumbosacral spine, 2 or 3 views. COMPARISON: No relevant prior studies available. FINDINGS: Vertebrae: [id number] grade disc space narrowing is present throughout the lumbar spine with endplate sclerosis and endplate osteophyte formation. No compression fractures are identified. Alignment is anatomic. Mild facet degenerative changes are present most advanced at L4-L5 and L5- S1. Soft tissues: Unremarkable. IMPRESSION: Degenerative disc and degenerative joint disease. No acute osseous abnormality present. Thank you for allowing us to participate in the care of your patient. Dictated and Authenticated by: Gerald Joshi MD 02/29/2020 12:30 PM Central Time ([place] & [place]) JOCELYNE
== END 2020-01-27 20:15 | disposition home or self-care (01) ==
LOC: JD.ED 15:59
DX: N30.00 Acute cystitis without hematuria (principal); M54.41 Lumbago with sciatica, right side; M54.42 Lumbago with sciatica, left side; F41.9 Anxiety disorder, unspecified; J45.909 Unspecified asthma, uncomplicated; F32.9 Major depressive disorder, single episode, unspecified; Z79.899 Other long term (current) drug therapy
CPT/HCPCS: 72100; 81001; 87086; 87088; 87186; 96372; 99283; A9270; J1885; 99284

== ENCOUNTER 2020-10-31 00:13 | Emergency (ER) | payer BC ==
[2020-10-31 00:29] VITALS: BP 123/39; PULSE 78
--- NOTE | 2020-10-31 00:44 | EDM.PDOC ---
ED HPI GENERAL MEDICAL PROBLEM - General Chief Complaint: Lower Extremity Injury/Pain Stated Complaint: INJURED RIGHT FOOT Time Seen by Provider: 10/31/20 00:23 Source of Information: Reports: Patient History Limitations: Reports: No Limitations - History of Present Illness INITIAL COMMENTS - FREE TEXT/NARRATIVE: Ms. Medina is a very pleasant 35-year-old woman who now presents the ED with a right foot injury. She states that she was wearing sandals, and slipped while going downstairs while on her way to work around 23:30 this evening - the stairs were wet, as it has been raining. She states that she injured her right foot, and that it is painful to bear weight. She is otherwise uninjured. No prior right foot injury. The patient states that she took some Tylenol prior to coming to the ED. Here in the ED, the patient's initial BP is found to be mildly depressed at 123/39, otherwise, she is hemodynamically stable, afebrile, saturating 98% on room air. She appears to be comfortable, in no acute distress. The patient states that she underwent gastric bypass surgery about 3 weeks ago. She has vomited since surgery, otherwise, prior to this evening, the patient denies having a recent fever, chills, sore throat, ear pain, nasal or sinus congestion, cough, dyspnea, chest pain, palpitations, constipation, diarrhea, abdominal pain, urinary symptoms, recent weight gain or weight loss, recent bloody bowel movements or black bowel movements, recent joint aches, headaches, or rashes. The patient's PCP is YAMILKA Busby. Her Bariatric Surgeon is Dr. Landry Norris, at [facility]. Her Institutional Cook is Dr. Garrison Hurtado. Right Feet Pain Score (Numeric/FACES): 9 - Related Data Allergies Allergy/AdvReac Type Severity Reaction Status Date / Time No Known Allergies Allergy Verified 01/27/20 16:51 Home Meds: Home Meds Acetaminophen/oxyCODONE [Percocet 325-5 MG] 1 each PO Q6H PRN #12 tab 01/27/20 [Rx] Cefdinir [Omnicef] 300 mg PO BID 5 Days #10 cap 01/27/20 [Rx] LORazepam [Ativan] 1 mg PO TID PRN #12 tab 01/27/20 [Rx] Sertraline [Zoloft] 50 mg PO DAILY 01/27/20 [History] predniSONE 20 mg PO ASDIRECTED #15 tab 01/27/20 [Rx] Past Medical History Respiratory History: Reports: Asthma (suspected, not PFT-tested), Sleep Apnea (nightly CPAP) 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 Psychiatric History: Reports: Anxiety, Depression Endocrine/Metabolic History: Reports: Diabetes, Gestational, Obesity/BMI 30+, Other (See Below) (Prediabetes) - Past Surgical History HEENT Surgical History: Reports: Oral Surgery (dental extractions) GI Surgical History: Reports: Bariatric Procedure (gastric bypass mid-September 2020) Female Surgical History: Reports: Section (x 1), Tubal Ligation Musculoskeletal Surgical History: Reports: Other (See Below) (Left hand lipoma removal) Social & Family History - Tobacco Use Tobacco Use Status *Q: Never Tobacco User - Caffeine Use Caffeine Use: Reports: Coffee, Soda - Alcohol Use Alcohol Use History: Yes Alcohol Use Frequency: Rarely - Recreational Drug Use Recreational Drug Use: No - Living Situation & Occupation Living situation: Reports: , with Significant Other (Boyfriend), with Family (5 kids) Occupation: Employed ([employer]) Review of Systems - Review of Systems Review Of Systems: Comprehensive ROS is negative, except as noted in HPI. ED EXAM, GENERAL - Physical Exam Exam: See Below Exam Limited By: No Limitations General Appearance: Alert, WD/WN, No Apparent Distress Extremities: Other (No visible abnormality to the right foot, when compared to the left, such as swelling, erythema, ecchymosis, or abrasion. Primarily tender to the medial plantar aspect, but also tender to the dorsolateral foot. Neurovascular status of the left lower extremity is intact.) ED TRAUMA EXTREMITY PROCEDURES - Splinting Right Lower Extremity Splint Site: Left foot Pre-Procedure NV Status: Normal Post-Procedure NV Status: Normal Splint Material: Fiberglass Splint Design: Posterior Applied & Form Fitted By: Provider Provider Post-Splint Application NV Check: NV Status Normal, Good Position Complications: No Course - Vital Signs Last Recorded V/S: Last Vital Signs Temp 36.4 C 10/31/20 00:22 Pulse 78 10/31/20 00:22 Resp 15 10/31/20 00:22 BP 123/39 L 10/31/20 00:22 Pulse Ox 98 10/31/20 00:22 - Orders/Labs/Meds Orders: Active Orders 24 hr Category Date Time Status Foot Comp Min 3V Rt [CR] Stat Exams 10/31/20 00:38 Taken - Re-Assessments/Exams Free Text/Narrative Re-Assessment/Exam: 10/31/20 00:39 As above, the patient slipped while going down stairs around an hour ago, injuring her distal right foot. There is no visible abnormality to the foot, but it is tender, primarily to the plantar aspect, although also to the dorsolateral aspect. I have ordered x-rays to evaluate. 10/31/20 01:26 4-view radiographs of the right foot appear to demonstrate nondisplaced fractures of the bases of the 4th and 5th metatarsals, however, it is unclear if these are acute or not. No other fractures or dislocations identified. I have asked for [facility] to interpret these images. 10/31/20 03:37 4-view radiographs of the right foot are read by [facility] as: 1. Acute proximal 4th and 5th metatarsal fractures. 2. Remainder of findings described as above. 10/31/20 03:52 I placed the patient's left foot into a posterior mold splint with the ankle at 90 degrees. She will be fitted for crutches, and instructed on their use. The patient already has a prescription for an opioid pain reliever following her gastric bypass surgery 3 weeks ago, however, she does not like to take them, and will therefore stick with acetaminophen. She is not permitted to take ibuprofen. I instructed the patient to ice and elevate her right foot as much as possible over the next few days to help minimize swelling. She is to ambulate with crutches and not bear any weight on her right foot. She is not to get the splint wet. She is to follow-up with Dr. Ramos in 1 week. I will write a note for her to be off work until then. Departure - Departure Time of Disposition: 03:54 Disposition: Home, Self-Care 01 Condition: Good Clinical Impression: Fracture of fourth metatarsal bone of right foot, Fracture of fifth metatarsal bone of right foot - Discharge Information *PRESCRIPTION DRUG MONITORING PROGRAM REVIEWED*: Not Applicable *COPY OF PRESCRIPTION DRUG MONITORING REPORT IN PATIENT CAITY: Not Applicable Referrals: Jaida Khoury PA-C [Primary Care Provider] - Landry Norris MD [Ordering Only Provider] - Garrison Hurtado MD [Physician] - Mateo Ramos MD [Physician] - Forms: ED Department Discharge, ED Return to Work/School Form Additional Instructions: You were seen in the emergency room after slipping down some steps and injuring your right foot. Work-up in the ER included x-rays of your right foot, which demonstrated nondisplaced fractures of your 4th and 5th metatarsal bones. Your right leg and foot have been placed into a splint. The splint cannot get wet, and you cannot bear weight on the splint. Use crutches for all ambulation. We recommend that you ice and elevate your right foot as much as possible over the next few days, to help minimize swelling. You may take kelb-[id number] acetaminophen (Tylenol) as needed for discomfort. You may also take an oral opioid pain reliever, prescribed to follow your gastric bypass surgery, if needed. We recommend that you contact the office of the Orthopedic Surgeon Dr. Mateo Ramos later today, in order to make an appointment to be seen by Dr. Ramos in 1 week, on 11/07/2020. A note to be off work through 11/07/2020, has been provided to you. If any other problems, please do not hesitate to return to the ER. Sepsis Event Note (ED) - Evaluation Sepsis Screening Result: No Definite Risk - Focused Exam Vital Signs: Vital Signs Temp Pulse Resp BP Pulse Ox 10/31/20 00:22 36.4 C 78 15 123/39 L 98 - My Orders Last 24 Hours: My Active Orders 10/31/20 00:38 Foot Comp Min 3V Rt [CR] Stat - Assessment/Plan Last 24 Hours: My Active Orders 10/31/20 00:38 Foot Comp Min 3V Rt [CR] Stat
--- NOTE | 2020-10-31 08:32 | CR ---
Right foot: 4 views of the right foot were obtained. Comparison: No prior foot exam is available. Fractures are identified within the base of the fourth and fifth metatarsal shafts. Alignment remains close to anatomic. No additional fracture or other bony abnormality is appreciated. Impression: 1. Nondisplaced fractures involving the proximal fourth and fifth metatarsal shafts. 2. No additional abnormality is appreciated. Diagnostic code #3 I agree with preliminary report from [facility], finalized on 10/31/20, 4:33 AM CDT, code 1
== END 2020-10-31 04:33 | disposition home or self-care (01) ==
LOC: JD.ED 00:13
DX: S92.344A Nondisplaced fracture of fourth metatarsal bone, right foot, initial encounter for closed fracture (principal); S92.355A Nondisplaced fracture of fifth metatarsal bone, left foot, initial encounter for closed fracture; E66.9 Obesity, unspecified; Z68.42 Body mass index [BMI] 45.0-49.9, adult; Z79.899 Other long term (current) drug therapy; X50.1XXA Overexertion from prolonged static or awkward postures, initial encounter
CPT/HCPCS: 29515; 73630-26-RT; 73630-RT; 99282; 99283-25

== ENCOUNTER 2020-12-10 16:39 | Emergency (ER) | payer BC ==
[2020-12-10 17:24] VITALS: BP 157/94; PULSE 70
[2020-12-10] MEDS ORDERED: Sodium Chloride 0.9% 1,000 ML IV SCH (18:00)
[2020-12-10] MEDS ORDERED: Sodium Chloride 0.9% 10 ML Syringe FLUSH PRN (18:07)
--- NOTE | 2020-12-10 18:12 | EDM.PDOC ---
ED HPI GENERAL MEDICAL PROBLEM - General Chief Complaint: General Stated Complaint: DEHYDRATED/DIZZY/LIGHTHEADED Time Seen by Provider: 12/10/20 18:00 Source of Information: Reports: Patient, RN Notes Reviewed History Limitations: Reports: No Limitations - History of Present Illness INITIAL COMMENTS - FREE TEXT/NARRATIVE: Patient is a 35-year-old female who presents to the ER for the evaluation of her dehydration. States she had gastric bypass, 2 months ago, and is supposed to drink 64 ounces of water daily. Notes that she has been having ongoing issues with back pain, and took a back pain medication yesterday, slept throughout most of the day and did not drink enough water she thinks. States that she is also been working nights, so her sleep schedule is a little bit off. She feels dizzy, lightheaded, but has not had any nausea or vomiting. She is denying any fevers or chills, cough. Primary care provider is Beatrice Khoury. 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: Reports: Spontaneous Other [employer]NER History: pt has had 3 vaginal deliveries 1 c/s Musculoskeletal History: Reports: Back Pain, Chronic Psychiatric History: Reports: Anxiety, Depression Endocrine/Metabolic History: Reports: Diabetes, Gestational, Obesity/BMI 30+, Other (See Below) Other Endocrine/Metabolic History: prediabetes - Past Surgical History HEENT Surgical History: Reports: Oral Surgery GI Surgical History: Reports: Bariatric Procedure (09/2020) Female Surgical History: Reports: Section, Tubal Ligation Musculoskeletal Surgical History: Reports: Other (See Below) Other Musculoskeletal Surgeries/Procedures:: left hand surgery Social & Family History - Family History Family Medical History: No Pertinent Family History - Tobacco Use Tobacco Use Status *Q: Never Tobacco User Second Hand Smoke Exposure: No - Caffeine Use Caffeine Use: Reports: Coffee, Tea - Recreational Drug Use Recreational Drug Use: No - Living Situation & Occupation Living situation: Reports: , with Significant Other (Boyfriend), with Family (5 kids) Occupation: Employed ([employer]) ED ROS GENERAL - Review of Systems Review Of Systems: Comprehensive ROS is negative, except as noted in HPI. ED EXAM, GENERAL - Physical Exam Exam: See Below Exam Limited By: No Limitations General Appearance: Alert, WD/WN, No Apparent Distress Respiratory/Chest: No Respiratory Distress, Lungs Clear, Normal Breath Sounds, No Accessory Muscle Use, Chest Non-Tender Cardiovascular: Normal Peripheral Pulses, Regular Rate, Rhythm, No Edema Peripheral Pulses: 2+: Radial (L), Radial (R) Extremities: Normal Inspection, Normal Capillary Refill Neurological: Alert, Oriented, Normal Cognition, No Motor/Sensory Deficits Psychiatric: Normal Affect, Normal Mood Skin Exam: Warm, Dry, Intact, Normal Color, No Rash Course - Vital Signs Last Recorded V/S: Last Vital Signs Temp 97.9 F 12/10/20 17:17 Pulse 70 12/10/20 17:17 Resp 16 12/10/20 17:17 BP 157/94 H 12/10/20 17:17 Pulse Ox 99 12/10/20 17:17 - Orders/Labs/Meds Orders: Active Orders 24 hr Category Date Time Status Peripheral IV Care [RC] . DIRECTED Care 12/10/20 18:07 Ordered Sodium Chloride 0.9% [Normal Saline] 1,000 ml Med 12/10/20 18:00 Active IV ASDIRECTED Sodium Chloride 0.9% [Saline Flush] Med 12/10/20 18:07 Active 10 ml FLUSH ASDIRECTED PRN Peripheral IV Insertion Adult [OM.PC] Routine Oth 12/10/20 18:07 Ordered Medication Orders Sodium Chloride (Normal Saline) 1,000 mls @ 999 mls/hr IV ASDIRECTED KAUR Last Admin: 12/10/20 18:22 Dose: 999 mls/hr Documented by: DOMINICK Sodium Chloride (Sodium Chloride 0.9% 10 Ml Syringe) 10 ml FLUSH ASDIRECTED PRN PRN Reason: Keep Vein Open Last Admin: 12/10/20 18:22 Dose: 10 ml Documented by: DOMINICK Labs: Laboratory Tests 12/10/20 12/10/20 Range/Units 18:34 18:34 WBC 8.32 (3.98-10.04) K/mm3 RBC 4.38 (3.98-5.22) M/mm3 Hgb 11.6 (11.2-15.7) gm/dl Hct 36.2 (34.1-44.9) % MCV 82.6 (79.4-94.8) fl MCH 26.5 (25.6-32.2) pg MCHC 32.0 L (32.2-35.5) g/dl RDW Std Deviation 48.5 H (36.4-46.3) fL Plt Count 263 (182-369) K/mm3 MPV 9.9 (9.4-12.3) fl Neut % (Auto) 69.9 (34.0-71.1) % Lymph % (Auto) 21.9 (19.3-51.7) % Lewis % (Auto) 6.7 (4.7-12.5) % Eos % (Auto) 1.2 (0.7-5.8) Baso % (Auto) 0.2 (0.1-1.2) % Neut # (Auto) 5.81 (1.56-6.13) K/mm3 Lymph # (Auto) 1.82 (1.18-3.74) K/mm3 Lewis # (Auto) 0.56 H (0.24-0.36) K/mm3 Eos # (Auto) 0.10 (0.04-0.36) K/mm3 Baso # (Auto) 0.02 (0.01-0.08) K/mm3 Sodium 141 (136-145) mEq/L Potassium 3.8 (3.5-5.1) mEq/L Chloride 105 (98-107) mEq/L Carbon Dioxide 25 (21-32) mEq/L Anion Gap 14.8 (5-15) BUN 8 (7-18) mg/dL Creatinine 0.7 (0.55-1.02) mg/dL Est Cr Clr Drug Dosing 116.11 mL/min Estimated GFR (MDRD) > 60 (>60) mL/min BUN/Creatinine Ratio 11.4 L (14-18) Glucose 86 (70-99) mg/dL Calcium 9.2 (8.5-10.1) mg/dL Total Bilirubin 0.5 (0.2-1.0) mg/dL AST 7 L (15-37) U/L ALT 22 (14-59) U/L Alkaline Phosphatase 73 (46-116) U/L Total Protein 7.1 (6.4-8.2) g/dl Albumin 3.6 (3.4-5.0) g/dl Globulin 3.5 gm/dL Albumin/Globulin Ratio 1.0 (1-2) Meds: Medications Generic Name Dose Route Start Last Admin Trade Name Freq PRN Reason Stop Dose Admin Sodium Chloride 1,000 mls @ 999 mls/hr 12/10/20 18:00 12/10/20 18:22 Normal Saline IV 999 mls/hr ASDIRECTED KAUR Administration Sodium Chloride 10 ml 12/10/20 18:07 12/10/20 18:22 Sodium Chloride 0.9% 10 Ml Syringe FLUSH 10 ml ASDIRECTED PRN Administration Keep Vein Open - Re-Assessments/Exams Free Text/Narrative Re-Assessment/Exam: 12/10/20 18:11 Patient presents to the ER for the evaluation of her dehydration, laboratory evaluation was ordered at time of triage. We will go ahead and get IV started give her a bag of fluids for ongoing management. 12/10/20 19:29 Laboratory evaluation demonstrates no acute abnormalities, patient is feeling better and will discharge her home at this time. Departure - Departure Time of Disposition: 19:29 Disposition: Home, Self-Care 01 Condition: Good Clinical Impression: Dehydration - Discharge Information *PRESCRIPTION DRUG MONITORING PROGRAM REVIEWED*: No *COPY OF PRESCRIPTION DRUG MONITORING REPORT IN PATIENT CAITY: No Instructions: Dehydration, Adult, [id number] Referrals: Jaida Khoury PA-C [Primary Care Provider] - Forms: ED Department Discharge Additional Instructions: You were evaluated in the ER today for your dehydration. You were given IV fluids, and had some laboratory evaluation taken which are all unremarkable for today's purposes. This seemed to help make you feel a little better. Please continue to drink plenty of fluids over the next few days, and keep well rested. Take all other medications as previously prescribed by your regular care provider. As always do not hesitate to return to the ER if your symptoms need to change or worsen. Sepsis Event Note (ED) - Evaluation Sepsis Screening Result: No Definite Risk - Focused Exam Vital Signs: Vital Signs Temp Pulse Resp BP Pulse Ox 12/10/20 17:17 97.9 F 70 16 157/94 H 99 - My Orders Last 24 Hours: My Active Orders 12/10/20 18:00 Sodium Chloride 0.9% [Normal Saline] 1,000 ml IV ASDIRECTED 12/10/20 18:07 Peripheral IV Care [RC] . DIRECTED Sodium Chloride 0.9% [Saline Flush] 10 ml FLUSH ASDIRECTED PRN Peripheral IV Insertion Adult [OM.PC] Routine - Assessment/Plan Last 24 Hours: My Active Orders 12/10/20 18:00 Sodium Chloride 0.9% [Normal Saline] 1,000 ml IV ASDIRECTED 12/10/20 18:07 Peripheral IV Care [RC] . DIRECTED Sodium Chloride 0.9% [Saline Flush] 10 ml FLUSH ASDIRECTED PRN Peripheral IV Insertion Adult [OM.PC] Routine
== END 2020-12-10 19:44 | disposition home or self-care (01) ==
LOC: JD.ED 16:39
DX: E86.0 Dehydration (principal); E66.9 Obesity, unspecified; Z68.42 Body mass index [BMI] 45.0-49.9, adult
CPT/HCPCS: 36415; 80053; 85025; 99284; J7030; 99283

== ENCOUNTER 2021-06-20 11:48 | Emergency (ER) | payer BC ==
[2021-06-20] MEDS ORDERED: Sodium Chloride 0.9% 10 ML Syringe FLUSH PRN (12:20)
[2021-06-20] MEDS ORDERED: Ketorolac 30 MG/ML SDV IVPUSH ONE (12:30)
[2021-06-20] MEDS ORDERED: Sodium Chloride 0.9% 1,000 ML IV ONE (12:30)
[2021-06-20] MEDS ORDERED: Sodium Chloride 0.9% 250 ML IV SCH (14:45)
[2021-06-20 17:04] VITALS: BP 130/63; PULSE 60
== END 2021-06-20 17:15 | disposition home or self-care (01) ==
LOC: JD.ED 11:48
DX: N93.8 Other specified abnormal uterine and vaginal bleeding (principal); E66.9 Obesity, unspecified; Z68.35 Body mass index [BMI] 35.0-35.9, adult; Z79.899 Other long term (current) drug therapy
CPT/HCPCS: 36415; 36430; 80053; 84703; 85025; 86850; 86900; 86901; 86922; 96374; 99284; A9270; J1885; J7030; J7050; P9016; 99285

== ENCOUNTER 2021-07-01 09:27 | Emergency (ER) | payer BC ==
[2021-07-01 09:47] VITALS: BP 105/58; PULSE 70
[2021-07-01] MEDS ORDERED: Dextrose 5%-0.9% NaCl 1,000 ML IV SCH (10:30)
[2021-07-01] MEDS ORDERED: Ketorolac 30 MG/ML SDV IVPUSH SCH (14:45)
== END 2021-07-01 15:15 | disposition home or self-care (01) ==
LOC: JD.ED 09:27
DX: N92.0 Excessive and frequent menstruation with regular cycle (principal); N93.8 Other specified abnormal uterine and vaginal bleeding; E03.9 Hypothyroidism, unspecified; E66.9 Obesity, unspecified; Z68.32 Body mass index [BMI] 32.0-32.9, adult; Z79.899 Other long term (current) drug therapy
CPT/HCPCS: 36415; 76857; 80053; 81001; 84703; 85025; 86140; 86850; 86900; 86901; 99284; J7042; 99285

== ENCOUNTER 2021-10-25 13:42 | Emergency (ER) | payer BC, MEDICAID ==
[2021-10-25 14:52] VITALS: BP 140/87; PULSE 85
[2021-10-25] MEDS ORDERED: Sodium Chloride 0.9% 1,000 ML IV STA (14:58)
[2021-10-25] MEDS ORDERED: Sodium Chloride 0.9% 10 ML Syringe FLUSH PRN ×2 (14:58→16:18)
[2021-10-25] MEDS ORDERED: Ondansetron 4 MG/2 ML SDV IVPUSH ONE (14:58)
[2021-10-25] MEDS ORDERED: HYDROmorphone 1 MG/ML Syringe IVPUSH ONE (15:00)
[2021-10-25] MEDS ORDERED: Iopamidol 612 MG/ML 100 ML Bottle IVPUSH ONE (16:18)
[2021-10-25] MEDS ORDERED: HYDROmorphone 0.5 MG/0.5 ML Syringe IVPUSH ONE (16:40)
[2021-10-25] MEDS ORDERED: cefTRIAXone 1 GM in Sodium Chloride 0.9% 100 ML IV ONE (17:46)
[2021-10-25] MEDS ORDERED: Amoxicillin/Clavulanate K 875-125 MG Tab PO ONE (17:59)
== END 2021-10-25 18:30 | disposition home or self-care (01) ==
LOC: JD.ED 13:42
DX: L08.9 Local infection of the skin and subcutaneous tissue, unspecified (principal); E03.9 Hypothyroidism, unspecified; E66.9 Obesity, unspecified; Z68.29 Body mass index [BMI] 29.0-29.9, adult; Z79.899 Other long term (current) drug therapy; Z86.16 Personal history of COVID-19
CPT/HCPCS: 36415; 74177; 80053; 81001; 85025; 86140; 96361; 96365; 96375; 96376; 99284; A9270; J0696; J1170; J2405; J3490; J7030; Q9967

== ENCOUNTER 2024-02-09 06:49 | Day surgery (SDC) | payer BC ==
[2024-02-09] MEDS ORDERED: Lidocaine 1% 4 ML ONE (06:59)
[2024-02-09] MEDS ORDERED: Propofol 200 MG/20 ML SDV ONE ×2 (06:59→07:51)
[2024-02-09] MEDS ORDERED: dexmedeTOMIDine HCl 200 MCG/2 ML SDV ONE (07:01)
[2024-02-09] MEDS: Lactated Ringers 1,000 ML IV SCH (07:10)
[2024-02-09 12:47] VITALS: BP 112/70; PULSE 68
== END 2024-02-09 09:08 | disposition home or self-care (01) ==
LOC: JD.SDS 06:49
PROVIDERS: ATTEND Surgery
DX: K21.9 Gastro-esophageal reflux disease without esophagitis (principal); Z98.84 Bariatric surgery status; F41.9 Anxiety disorder, unspecified; J45.909 Unspecified asthma, uncomplicated; E03.9 Hypothyroidism, unspecified; E66.9 Obesity, unspecified; Z68.31 Body mass index [BMI] 31.0-31.9, adult
CPT/HCPCS: 43235; J2704; J7120; J3490